=== PATIENT | male | born 1940 | race Caucasian/White ===

== ENCOUNTER 2020-04-15 08:12 | Inpatient (IN) | payer MEDICARE, OTHER ==
[~2020-04-15] VITALS: Ht 165.1 cm; Wt 120.2 kg
--- NOTE | 2020-04-15 08:12 | NUR ---
[id number] PT C/O HEADACHE. PT IS AAOX2, NOT IN RESPIRATORY DISTRESS, HOOKED TO MERCHANDISING TEAM LEAD, KEPT RESTED AND COMFORTABLE. WILL CONTINUE TO MONITOR.
--- NOTE | 2020-04-15 08:12 | NUR ---
Note bebeto in ED - 04/15/20 at 0932 by JOHNNY PT AIDE [facility]. PT C/O HEADACHE. PT IS AAOX3, NOT IN RESPIRATORY DISTRESS, HOOKED TO HAND FORMER, KEPT RESTED AND COMFORTABLE. WILL CONTINUE TO MONITOR.
--- NOTE | 2020-04-15 08:25 | NUR ---
PT SEEN AND EXAMINED BY .
--- NOTE | 2020-04-15 08:27 | NUR ---
IV LINE ESTABLISHED BLOOD DRAWN AND SENT TO LAB.
--- NOTE | 2020-04-15 08:36 | NUR ---
PT IS WHEELED TO CT SCAN VIA [facility].
[2020-04-15 08:38] LABS: BASOPHILS # (AUTO) 0.1 /CMM (0.0-0.2); EOSINOPHILS % (AUTO) 1.8 % (0.0-6.0); HEMATOCRIT 39 % (39-51); HEMOGLOBIN 11.7 g/dL (13.5-17.5); LYMPHOCYTES # (AUTO) 0.9 /CMM (0.8-4.8); LYMPHOCYTES % (AUTO) 9.3 % (20.0-44.0); MEAN CORPUSCULAR HGB CONC 30 g/dl (31.0-36.0); MEAN CORPUSCULAR VOLUME 96 fL (80-96); MONOCYTES # (AUTO) 0.8 /CMM (0.1-1.30); MONOCYTES % (AUTO) 8.1 % (2.0-12.0); NEUTROPHILS # (AUTO) 7.7 /CMM (1.8-8.9); NEUTROPHILS % (AUTO) 79.8 % (43.0-81.0); PLATELET COUNT (AUTO) 184 /CMM (150-450); RED BLOOD CELL COUNT(AUTO) 4.03 MIL/uL (4.5-6.0); WHITE BLOOD COUNT (AUTO) 9.6 K/uL (4.3-11.0)
[2020-04-15 08:50] LABS: CARBON DIOXIDE 18 mmol/L (21-32); CHLORIDE 97 mmol/L (98-107); GLUCOSE 138 mg/dL (74-106); SODIUM SERUM 139 mmol/L (136-145)
--- NOTE | 2020-04-15 08:57 | NUR ---
LAB CALLED, CALCIUM 5.9 BUN 141 CREATNIN 10.1
[2020-04-15 08:58] LABS: CALCIUM, SERUM 5.9 mg/dL (8.5-10.1); CREATININE 10.1 mg/dL (0.6-1.3); UREA NITROGEN, BLOOD 141 mg/dL (7-18)
[2020-04-15] MEDS ORDERED: ASPI-605 PO (08:58)
[2020-04-15] MEDS ORDERED: QUET50TA PO (08:58)
[2020-04-15] MEDS ORDERED: FURO-144 PO (08:58)
[2020-04-15] MEDS ORDERED: MIDO10TA PO (08:58)
[2020-04-15] MEDS ORDERED: MULT1TAB69 PO (08:58)
[2020-04-15] MEDS ORDERED: ATOR40TA PO (08:58)
[2020-04-15] MEDS ORDERED: LINA5TAB PO (08:58)
[2020-04-15] MEDS ORDERED: DOXE25CA3 PO (08:58)
--- NOTE | 2020-04-15 08:58 | NUR ---
CALLED PT 'S SON ASHISH NO ANSWER.
[2020-04-15 09:00] LABS: ALANINE AMINOTRANSFERASE < 6 U/L (12-78); ALBUMIN 3.2 g/dL (3.4-5.0); ALKALINE PHOSPHATASE 96 U/L (46-116); ASPARTATE AMINOTRANSFERASE 21 U/L (15-37); BILIRUBIN,DIRECT 0.3 mg/dL (0.0-0.2); BILIRUBIN,TOTAL 0.6 mg/dL (0.2-1.0); TOTAL PROTEIN, SERUM 6.7 g/dL (6.4-8.2)
--- NOTE | 2020-04-15 09:31 | NUR ---
CALLED DR. POSADAS [phone] [phone]
--- NOTE | 2020-04-15 09:33 | NUR ---
MOVE SHEET SUBMITTED AND CALLED FOR BED.
--- NOTE | 2020-04-15 09:39 | NUR ---
CALLED SON MANUEL HINOJOSA NO ANSWER.
--- NOTE | 2020-04-15 10:05 | NUR ---
CALLED DR. POSADAS [phone] X [phone] WILL BE PAGED PER [place]
--- NOTE | 2020-04-15 10:26 | NUR ---
COVID SWAB OBTAINED AND SENT TO LAB.
[2020-04-15] MEDS ORDERED: HYDROCODONE/APAP 5/325MG TABLET PO PRN (10:30)
[2020-04-15] MEDS ORDERED: DEXTROSE 50%-WATER 50 ML DISP.SYRIN IV PRN (10:30)
[2020-04-15] MEDS ORDERED: ZOLPIDEM TARTRATE 5 MG TABLET PO PRN (10:30)
[2020-04-15] MEDS ORDERED: ACETAMINOPHEN 325 MG TABLET PO PRN (10:30)
[2020-04-15] MEDS ORDERED: MAG HYDROX/AL HYDROX/SIMETH 30 ML UDC PO PRN (10:30)
[2020-04-15] MEDS ORDERED: Z GUARD REMEDY 2 OZ OINT TP PRN (10:30)
[2020-04-15] MEDS ORDERED: MAGNESIUM HYDROXIDE 30 ML UDC PO PRN (10:30)
[2020-04-15] MEDS ORDERED: ONDANSETRON HCL/PF 4 MG/2 ML VIAL IVP PRN (10:30)
[2020-04-15] MEDS ORDERED: ASPIRIN 81 MG TAB.CHEW ONE (10:56)
[2020-04-15] MEDS ORDERED: ASPIRIN 81 MG TAB.CHEW PO ONE (11:00)
--- NOTE | 2020-04-15 11:06 | NUR ---
REPORT GIVEN TO EDGAR GAUTHIER FOR MAGO.
[2020-04-15] MEDS ORDERED: ASPIRIN 81 MG TAB.CHEW PO SCH (11:30)
--- NOTE | 2020-04-15 12:00 | NUR ---
MS/RN ADMITTING NOTES Received patient in [facility], transferred to bed. Vital signs taken, patient A&O x 2, confused, Maltese speaking. Breathing even and non-labored on RA, no SOB noted. No cardiac distress noted. On tele monitor reading SR 85. IV access noted on R AC #18, patent and intact, and flushing well. R chest permacath noted. Sensation from all peripheral extremities noted. Fall precautions maintained. Will continue to monitor for any changes of condition.
[2020-04-15] MEDS: CALCIUM CARBONATE 500 MG TAB.CHEW PO SCH ×3 (12:30→21:31)
--- NOTE | 2020-04-15 12:50 | NUR ---
MS/RN NOTES OBTAINED HEMODIALYSIS CONSENT THROUGH SON (ASHISH) VIA TELEPHONE, SINCE PATIENT IS CONFUSED.
[2020-04-15] MEDS: MIDODRINE HCL (5MG) 5 MG TABLET PO SCH ×2 (13:14→17:47)
[2020-04-15] MEDS: BLOOD SUGAR DIAGNOSTIC 1 EACH STRIP VI SCH ×3 (13:21→22:13)
--- NOTE | 2020-04-15 17:45 | NUR ---
TELE/RN NOTES Asked Dr. Branham for an order of chem prophylaxis for DVT since pt's VTE score is 4, he states "dvt pumps only". Order carried out.
[2020-04-15] MEDS: *INSULIN REGULAR(HUMULIN R)HUM 100 UNIT/ML VIAL SQ PRN (17:56)
--- NOTE | 2020-04-15 18:00 | NUR ---
TELE/RN NOTES PATIENT VERY CONFUSED AND COMBATIVE, TRIES TO GET OUT OF BED, THROWS THE IV POLE AND DRAWERS AROUND, AND REPEATEDLY REMOVED TELE LEADS AND DEVICE. HELD TELE FOR NOW DUE TO BEHAVIOR. TRIED ALTERNATIVE MEASURES BEFORE RESTRAINTS SUCH REDIRECTION, BUT REMAINS TO BE COMBATIVE. NOTIFIED DR. GARRISON, ORDERED SOFT BILATERAL WRIST RESTRAINTS. WILL CONTINUE TO MONITOR BEHAVIOR, SKIN, AND CIRCULATION EVERY 15 MINUTES.
[2020-04-15] MEDS: LORAZEPAM INJ 2 MG/ML VIAL IV PRN (19:10)
--- NOTE | 2020-04-15 19:32 | NUR ---
TELE/RN NOTES Patient A&O x 2, remains confused and combative, yelling around. No complaints of pain/discomfort at this time. Breathing even and non-labored on RA, no SOB noted. No cardiac distress noted. IV access noted on R AC #18, patent and intact, and flushing well. R chest permacath noted. Pt had dialysis today, 1L out. Sensation from all peripheral extremities noted. Fall precautions maintained. Bilateral soft restraints in place, skin and sensation remains intact. Will endorse to night shift supervisor nurse.
--- NOTE | 2020-04-15 19:45 | NUR ---
FRUIT CULLER OPENING NOTES PATIENT AWAKE AND YELLING IN BED. A/OX2; CONFUSED; PRIMARY LANGUAGE VENEZUELAN. BILATERAL SOFT WRIST RESTRAINTS PRESENT FOR PATIENT SAFETY; SKIN CIRCULATION WNL. TELE MONITOR READING NSR, HEART RATE 98. ON RA; NO S/S OF ACUTE RESPIRATORY DISTRESS. PERMACATH PRESENT ON RIGHT UPPER CHEST; DRESSING DRY AND INTACT. IV PRESENT ON RIGHT AC, SIZE 18, INTACT & PATENT, HEP LOCKED. SAFETY MEASURES IN PLACE AND PATIENT'S NEEDS MET. BED LOCKED, ALARM ON, SIDE RAILS X2, CALL LIGHT WITHIN REACH. WILL CONTINUE TO MONITOR.
[2020-04-15 20:00] VITALS: BP 100/61
[2020-04-15 20:05] VITALS: BP 100/61
[2020-04-15] MEDS: ATORVASTATIN 40 MG TABLET PO SCH (21:31)
[2020-04-15] MEDS: QUETIAPINE FUMARATE 25 MG TABLET PO SCH (21:32)
[2020-04-15] MEDS: DOXEPIN HCL (25 MG) 25 MG CAPSULE PO SCH (21:32)
[2020-04-16] VITALS (24 sets, daily range): BP systolic 57–138; BP diastolic 30–88
--- NOTE | 2020-04-16 01:26 | NUR ---
MEDICAL DEVICE NOTES PATIENT'S BP: 73/60 HR: 94; NOTIFIED ON MARCO RAM MD. RECEIVED ORDERS FOR 500 ML NS BOLUS ONE TIME. ORDERS CARRIED OUT.
--- NOTE | 2020-04-16 01:40 | NUR ---
TALENT MANAGER NOTES PATIENT'S BP: 95/64 HR: 90. WILL CONTINUE TO MONITOR.
--- NOTE | 2020-04-16 02:16 | NUR ---
VENDING TECHNICIAN NOTES PATIENT'S BP: 120/85 HR: 94
[2020-04-16] MEDS ORDERED: IV NS 0.9% 500 ML IV ONE (02:30)
[2020-04-16] MEDS: INSULIN REGULAR, HUMAN 100 UNIT/ML 3 ML VIAL SQ PRN (06:26)
[2020-04-16] MEDS: LORAZEPAM INJ 2 MG/ML VIAL IV PRN (06:42)
--- NOTE | 2020-04-16 06:42 | NUR ---
SOFTWARE RELEASE ENGINEER NOTES PATIENT IS SCREAMING, TRYING TO REMOVE BILATERAL SOFT WRIST RESTRAINTS, AND TRYING TO GET OUT OF BED. PRN ATIVAN 0.5MG IV GIVEN TO PATIENT. VITAL SIGNS - BPO Addendum: 04/16/20 at 0658 by PEGGY RENE RN VITAL SIGNS - BP: 151/59, HR: 92. SAFETY MEASURES IN PLACE. WILL CONTINUE TO MONITOR.
[2020-04-16] MEDS: BLOOD SUGAR DIAGNOSTIC 1 EACH STRIP VI SCH ×4 (06:47→23:11)
--- NOTE | 2020-04-16 07:32 | NUR ---
RN NOTES RECEIVED PATIENT IN BED RESTING COMFORTABLY IN MODERATE HIGH BACK REST. A/O X1, LAO SPEAKING. CONFUSED; ON OXYGEN 2LPM VIA NC, NO SIGNS OF DISTRESS NOTED AT THIS TIME, NOTED WITH BILATERAL SOFT WRIST RESTRAINTS PRESENT FOR PATIENT SAFETY; SKIN CIRCULATION WNL. TELE MONITOR READING NSR, HEART RATE 90'S. NOTED WITH PERMACATH PRESENT ON RIGHT UPPER CHEST; DRESSING DRY AND INTACT. IV PRESENT ON RIGHT HAND #20, INTACT & PATENT, HEP LOCKED. SAFETY MEASURES IN PLACE. BED LOCKED, ALARM ON, SIDE RAILS X2, CALL LIGHT WITHIN REACH. WILL CONTINUE TO MONITOR.
--- NOTE | 2020-04-16 07:41 | NUR ---
WEB PRESS ROLL TENDER CLOSING NOTES PATIENT SLEEPING IN BED, EASY TO AWAKEN. A/OX2; CONFUSED. BILATERAL SOFT WRIST RESTRAINTS PRESENT FOR PATIENT SAFETY; SKIN CIRCULATION WNL. TELE MONITOR READING NSR, HEART RATE 89. ON 2L NC. NO S/S OF ACUTE RESPIRATORY DISTRESS; BREATHING IS EVEN AND UNLABORED. PERMACATH PRESENT ON RIGHT UPPER CHEST; DRESSING DRY AND INTACT. IV PRESENT ON RIGHT HAND, SIZE 20, INTACT & PATENT, HEP LOCKED. SAFETY MEASURES IN PLACE AND PATIENT'S NEEDS MET. BED LOCKED, ALARM ON, SIDE RAILS X2, CALL LIGHT WITHIN REACH. ENDORSED TO DAY SHIFT RN PLAN OF CARE.
[2020-04-16] MEDS: ASPIRIN EC 81 MG TABLET.DR PO SCH ×2 (08:16→09:00)
[2020-04-16] MEDS: MULTIVITAMINS,THERAGRAN 1 UDTAB TABLET PO SCH ×2 (08:16→09:00)
[2020-04-16] MEDS: MIDODRINE HCL (5MG) 5 MG TABLET PO SCH ×4 (08:16→17:00)
[2020-04-16] MEDS: CALCIUM CARBONATE 500 MG TAB.CHEW PO SCH ×3 (08:17→22:00)
[2020-04-16] MEDS ORDERED: IV NS 0.9% 1,000 ML IV SCH (08:52)
--- NOTE | 2020-04-16 08:59 | NUR ---
WOUND CARE CONSULT: PT UNSTABLE AT THIS TIME. NO WOUND ASSESSMENT DUE TO PT CONDITION. REVIEWED CHART AND PHOTO DOCUMENTATION WHICH SHOWS SCROTAL/PERINEAL REDNESS AND RASH. RECOMMENDATIONS MADE FOR SKIN CARE AND PROTECTION. DISCUSSED WITH NURSING STAFF. WILL SEE PRN. HAND IN AGREEMENT WITH PLAN OF CARE. CURRENT [place] SCORE IS 15.
--- NOTE | 2020-04-16 09:00 | NUR ---
RN NOTES PATIENT BP 76/46, CHECKED MANUALLY TWICE, MD MADE AWARE. RECEIVED A CALL FROM DR. BEACH TO TRANSFER PATIENT TO ICU, IV FLUIDS OF NS 1L STARTED TO RUN FOR 2 HRS. WILL CONTINUE TO MONITOR.
[2020-04-16] MEDS: CLOTRIMAZOLE 1% 15 GM TUBE TP SCH ×2 (09:38→17:00)
--- NOTE | 2020-04-16 10:30 | NUR ---
RN NOTES PATIENT WAS TRANSFERRED TO ICU ROOM 262, BEDSIDE REPORT GIVEN TO ABRAHAN GARCIA. ALL BELONGINGS SENT WITH PATIENT.
--- NOTE | 2020-04-16 14:11 | NUR ---
patient transferred back to . Ok per. Dr. Branham. Patient agitated, BP stable, see vitasigns. 98/55 L leg. Refused 1300 dose of midodraine. x1 BM. restraints changed to mittens to prevent disruption of medical care.
--- NOTE | 2020-04-16 14:15 | NUR ---
RN NOTES RECEIVED PATIENT VIA HOSPITAL BED FROM ICU, BP OF 71/48 ON ARMS, 90/50 ON LEGS, PER ICU NURSE, PATIENT IS COMBATIVE AND REFUSED MIDODRINE. MD MADE AWARE. WILL CONTINUE TO MONITOR.
--- NOTE | 2020-04-16 14:55 | NUR ---
RN NOTES DIALYSIS NURSE ON UNIT, PATIENT WILL BE DIALYZE ON BED SIDE, PATIENT IS CALM AND ASLEEP, NO SIGNS OF DISTRESS NOTED AT THIS TIME. WILL CONTINUE TO MONITOR.
[2020-04-16 15:52] LABS: BASOPHILS # (AUTO) 0.1 /CMM (0.0-0.2); EOSINOPHILS % (AUTO) 1.6 % (0.0-6.0); HEMATOCRIT 29 % (39-51); HEMOGLOBIN 8.9 g/dL (13.5-17.5); LYMPHOCYTES # (AUTO) 0.9 /CMM (0.8-4.8); MEAN CORPUSCULAR HGB CONC 31 g/dl (31.0-36.0); MEAN CORPUSCULAR VOLUME 95 fL (80-96); MONOCYTES # (AUTO) 0.6 /CMM (0.1-1.30); MONOCYTES % (AUTO) 5.8 % (2.0-12.0); NEUTROPHILS # (AUTO) 8.2 /CMM (1.8-8.9); NEUTROPHILS % (AUTO) 82.6 % (43.0-81.0); PLATELET COUNT (AUTO) 188 /CMM (150-450); RED BLOOD CELL COUNT(AUTO) 3.06 MIL/uL (4.5-6.0); WHITE BLOOD COUNT (AUTO) 9.9 K/uL (4.3-11.0)
[2020-04-16 16:32] LABS: ALANINE AMINOTRANSFERASE 8 U/L (12-78); ALBUMIN 3.1 g/dL (3.4-5.0); ALKALINE PHOSPHATASE 107 U/L (46-116); ASPARTATE AMINOTRANSFERASE 13 U/L (15-37); BILIRUBIN,TOTAL 0.6 mg/dL (0.2-1.0); CALCIUM, SERUM 8.2 mg/dL (8.5-10.1); CARBON DIOXIDE 23 mmol/L (21-32); CHLORIDE 101 mmol/L (98-107); GLUCOSE 96 mg/dL (74-106); MAGNESIUM 2.3 mg/dL (1.8-2.4); PHOSPHORUS 5.9 mg/dL (2.5-4.9); POTASSIUM 3.8 mmol/L (3.5-5.1); SODIUM SERUM 141 mmol/L (136-145); TOTAL PROTEIN, SERUM 6.4 g/dL (6.4-8.2)
--- NOTE | 2020-04-16 17:15 | NUR ---
RN NOTES DIALYSIS DONE, NO OUTPUT, PATIENT IS CONFUSED AND COMBATIVE, BP OF 90/60. WILL CONTINUE TO MONITOR.
[2020-04-16 17:24] LABS: UREA NITROGEN, BLOOD 85 mg/dL (7-18)
[2020-04-16 17:25] LABS: CREATININE 8.1 mg/dL (0.6-1.3)
--- NOTE | 2020-04-16 17:41 | NUR ---
RN NOTES PATIENT IS AGITATED AND COMBATIVE, REFUSED BS CHECKED AND MEDICATION. EXPLAINED RISKS AND BENEFITS BUT PATIENT STILL REFUSED. WILL CONTINUE TO MONITOR.
--- NOTE | 2020-04-16 17:50 | NUR ---
RN NOTES PATIENT REFUSED TELE MONITORING BOX, COMBATIVE AND CONFUSED, WILL CONTINUE TO MONITOR. MD MADE AWARE. WILL CONTINUE TO MONITOR.
--- NOTE | 2020-04-16 18:39 | NUR ---
RN NOTES PATIENT IN BED AGGRESIVE/COMBATIVE WHEN TOUCH. A/O X1, MONGOLIAN SPEAKING. CONFUSED; ON OXYGEN 2LPM VIA NC, WITH BILATERAL SOFT WRIST RESTRAINTS PRESENT FOR PATIENT SAFETY; SKIN CIRCULATION WNL. REFUSED TELEMONITOR BOX, S/P HD WITH NO OUTPUT. NOTED WITH PERMACATH PRESENT ON RIGHT UPPER CHEST; DRESSING DRY AND INTACT. IV PRESENT ON RIGHT HAND #20, INTACT & PATENT, HEP LOCKED. SAFETY MEASURES IN PLACE. BED LOCKED, ALARM ON, SIDE RAILS X2, CALL LIGHT WITHIN REACH. WILL ENDORSE TO ADMINISTRATIVE VOLUNTEER NURSE FOR MAGO.
--- NOTE | 2020-04-16 19:16 | NUR ---
PATIENT AGGRESSIVE AND UNCOOPERATIVE. CANNOT PERFORM DUPLEX VENOUS EXAM ON UPPER EXT RIGHT. WILL TRY KENDRA.
--- NOTE | 2020-04-16 19:31 | NUR ---
WOOD SCALER OPENING NOTES PATIENT AWAKE AND YELLING IN BED. A/OX2; CONFUSED. BILATERAL SOFT WRIST RESTRAINTS PRESENT FOR PATIENT SAFETY; SKIN CIRCULATION WNL. PATIENT REFUSING TELE MONITOR AT THIS TIME. ON RA; NO S/S OF ACUTE RESPIRATORY DISTRESS. PERMACATH PRESENT ON RIGHT UPPER CHEST; DRESSING DRY AND INTACT. IV PRESENT ON RIGHT HAND, SIZE 20, INTACT & PATENT, HEP LOCKED. SAFETY MEASURES IN PLACE AND PATIENT'S NEEDS MET. BED LOCKED, ALARM ON, SIDE RAILS X2, CALL LIGHT WITHIN REACH. WILL CONTINUE TO MONITOR.
--- NOTE | 2020-04-16 20:27 | NUR ---
GRADUATE ADVISOR NOTES TELE MONITOR READING NSR, HEART RATE 90. PATIENT SLEEPING IN BED, EASY TO AWAKEN. SOFT BILATERAL WRIST RESTRAINTS REMAIN IN PLACE FOR PATIENT SAFETY; SKIN CIRCULATION WNL. WILL CONTINUE TO MONITOR.
[2020-04-16] MEDS: DOXEPIN HCL (25 MG) 25 MG CAPSULE PO SCH (22:00)
[2020-04-16] MEDS: ATORVASTATIN 40 MG TABLET PO SCH (22:00)
[2020-04-16] MEDS: QUETIAPINE FUMARATE 25 MG TABLET PO SCH (22:00)
[2020-04-17] VITALS: BP 95/55
[2020-04-17 04:00] VITALS: BP 102/71
[2020-04-17] MEDS: BLOOD SUGAR DIAGNOSTIC 1 EACH STRIP VI SCH ×4 (06:49→22:45)
--- NOTE | 2020-04-17 07:55 | NUR ---
REFRIGERATION UNIT REPAIRER CLOSING NOTES PATIENT SLEEPING IN BED, EASY TO AWAKEN. A/OX1; CONFUSED. BILATERAL SOFT WRIST RESTRAINTS PRESENT FOR PATIENT SAFETY; SKIN CIRCULATION WNL. TELE MONITOR READING NSR, HEART RATE 90. ON 2L NC. NO S/S OF ACUTE RESPIRATORY DISTRESS; BREATHING IS EVEN AND UNLABORED. PERMACATH PRESENT ON RIGHT UPPER CHEST; DRESSING DRY AND INTACT. IV PRESENT ON RIGHT HAND, SIZE 20, INTACT & PATENT, HEP LOCKED. SAFETY MEASURES IN PLACE AND PATIENT'S NEEDS MET. BED LOCKED, ALARM ON, SIDE RAILS X2, CALL LIGHT WITHIN REACH. ENDORSED TO DAY SHIFT RN PLAN OF CARE
[2020-04-17 08:00] VITALS: BP 146/96
--- NOTE | 2020-04-17 08:00 | NUR ---
MESSAGE AND DELIVERY SERVICE PRICER AM NOTES PATIENT LYING IN BED A/OX1; CONFUSED. WITH RESTLESS EPISODES WANTING TO GO HOME AND LOOK FOR HIS .REORIENTATION GIVEN BUT INEFFECTIVE. CALLED PT'S ,ANDREA AND SON, ASHISH TO RELAX THE PT BUT PT CONTINUES TO BE AGITATED. WILL MONITOR. ON BILATERAL SOFT WRIST RESTRAINTS PRESENT FOR PATIENT SAFETY; SKIN CIRCULATION WNL. TELE MONITOR READING NSR, HEART RATE 90. ON 2L NC. NO S/S OF ACUTE RESPIRATORY DISTRESS; BREATHING IS EVEN AND UNLABORED. PERMACATH PRESENT ON RIGHT UPPER CHEST; DRESSING DRY AND INTACT. IV PRESENT ON RIGHT HAND, SIZE 20, INTACT & PATENT, HEP LOCKED. SAFETY MEASURES IN PLACE.BED LOCKED, ALARM ON, SIDE RAILS X2, CALL LIGHT WITHIN REACH.
[2020-04-17] MEDS: LORAZEPAM INJ 2 MG/ML VIAL IV PRN (09:01)
[2020-04-17] MEDS: MIDODRINE HCL (5MG) 5 MG TABLET PO SCH ×3 (09:01→17:16)
[2020-04-17] MEDS: ASPIRIN EC 81 MG TABLET.DR PO SCH (09:01)
[2020-04-17] MEDS: CALCIUM CARBONATE 500 MG TAB.CHEW PO SCH ×2 (09:01→22:15)
[2020-04-17] MEDS: MULTIVITAMINS,THERAGRAN 1 UDTAB TABLET PO SCH (09:01)
[2020-04-17] MEDS: CLOTRIMAZOLE 1% 15 GM TUBE TP SCH ×2 (10:43→17:17)
[2020-04-17 16:00] VITALS: BP 139/96
[2020-04-17] MEDS ORDERED: NEPRO VAN 237 ML CAN PO PRN (16:00)
--- NOTE | 2020-04-17 16:39 | NUR ---
NOTIFIED DR GARRISON OF PT'S DOPPLER OF RUE RESULT WITH ORDER FOR ELIQUIS AND CARRIED OUT.
[2020-04-17] MEDS: DIVALPROEX SODIUM 125 MG CAP.SPRINK PO SCH (17:16)
[2020-04-17] MEDS ORDERED: APIXABAN 2.5 MG TABLET PO SCH (17:45)
--- NOTE | 2020-04-17 18:00 | NUR ---
PT COMFORTABLY SLEEPING AND RESTING IN BED WITH NO S/S OF PAIN OR DISTRESS.PT REFUSED LUNCH AND DINNER INSPITE OF EXPLAINING THE RISKS AND BENEFITS AND IMPORTANCE OF NOURISHMENT BUT PT STILL INSISTS TO REFUSE.REFUSED JUICE/WATER/SNACKS. DIETITIANMARIA TERESA IN THE CASE. TURNED EVERY TWO HRS.STILL WITH PERIOD OF AGGRESSIVENESS AND SCREAMING TO THE STAFF DURING THE SHIFT.SEEN BY DR CASILLAS (PSYCH) WITH ORDERS FOR DEPAKOTE AND CARRIED OUT.WILL MONITOR.
[2020-04-17] MEDS: APIXABAN 5 MG TABLET PO SCH (18:23)
--- NOTE | 2020-04-17 19:30 | NUR ---
MS/RN OPENING NOTES RECEIVED PATIENT RESTING IN BED. PATIENT IS ALERT AND ORIENTED X 1. NO SIGNS OF SOB OR RESPIRATORY DISTRESSED NOTED. PATIENT IS ON 2L OF O2 VIA N/C TOLERATING WELL. PATIENT HAS RIGHT HAND #[address] AND RIGHT CHEST PERMA CATH IN PLACE. NO SIGNS OF DISTRESSED NOTED. PATIENT HAS BILATERAL SOFT WRIST RESTRAINTS, EXTREMITY CIRCULATION GOOD. SAFETY MEASURES ARE IN PLACE BED IS LOCKED AND PLACED IN THE LOWEST POSITION CALL LIGHT WITH IN REACH SIDE RAILS UP X 3. WILL CONTINUE TO MONITOR DURING SHIFT.
[2020-04-17 20:00] VITALS: BP 99/56
[2020-04-17] MEDS: ATORVASTATIN 40 MG TABLET PO SCH (22:14)
[2020-04-17] MEDS: QUETIAPINE FUMARATE 25 MG TABLET PO SCH (22:14)
[2020-04-18] MEDS: BLOOD SUGAR DIAGNOSTIC 1 EACH STRIP VI SCH ×4 (06:21→21:37)
--- NOTE | 2020-04-18 06:30 | NUR ---
MS/RN CLOSING NOTES PATIENT SLEEPING IN BED. PATIENT IS ALERT AND ORIENTED X 1. NO SIGNS OF SOB OR RESPIRATORY DISTRESSED NOTED. PATIENT IS ON 2L OF O2 VIA N/C TOLERATING WELL. PATIENT HAS RIGHT HAND #[address] AND RIGHT CHEST PERMA CATH IN PLACE. NO SIGNS OF DISTRESSED NOTED. PATIENT HAS BILATERAL SOFT WRIST RESTRAINTS, EXTREMITY CIRCULATION GOOD. ALL OF THE PATIENTS NEEDS HAVE BEEN MET DURING SHIFT. SAFETY MEASURES ARE IN PLACE BED IS LOCKED AND PLACED IN THE LOWEST POSITION CALL LIGHT WITH IN REACH SIDE RAILS UP X 3. WILL ENDORSE CARE TO DAY SHIFT.
[2020-04-18 08:00] VITALS: BP 105/54
--- NOTE | 2020-04-18 08:00 | NUR ---
MS RN NOTES PATIENT IN BED RESTING NO SOB OR ACUTE DISTRESS NOTED. PATIENT ON BILATERAL SOFT WRIST RESTRAINTS. ALERT, ORIENTED X1. CONFUSED. SAFETY MEASURES IN PLACE. WILL CONTINUE TO MONITOR.
--- NOTE | 2020-04-18 08:41 | NUR ---
NURSE WILL CLARIFY EXAM WITH NEUROLOGIST DF @ [id number]
[2020-04-18] MEDS ORDERED: APIXABAN 2.5 MG TABLET PO SCH (09:00)
[2020-04-18] MEDS: MIDODRINE HCL (5MG) 5 MG TABLET PO SCH ×3 (09:18→17:13)
[2020-04-18] MEDS: APIXABAN 5 MG TABLET PO SCH ×2 (09:19→17:14)
[2020-04-18] MEDS: CLOTRIMAZOLE 1% 15 GM TUBE TP SCH ×2 (09:20→17:21)
[2020-04-18] MEDS: DIVALPROEX SODIUM 125 MG CAP.SPRINK PO SCH ×3 (09:20→17:14)
[2020-04-18] MEDS: ASPIRIN EC 81 MG TABLET.DR PO SCH (09:20)
[2020-04-18] MEDS: MULTIVITAMINS,THERAGRAN 1 UDTAB TABLET PO SCH (09:20)
[2020-04-18] MEDS: CALCIUM CARBONATE 500 MG TAB.CHEW PO SCH ×2 (09:21→21:29)
[2020-04-18] MEDS ORDERED: EPOETIN ALFA (10,000 UNIT) 10,000 UNIT/ML VIAL IV ONE (13:00)
[2020-04-18 16:00] VITALS: BP 132/52
--- NOTE | 2020-04-18 16:20 | NUR ---
MS RN NOTES PATIENT HAD MIDLINE INSERTED, TOLERATED WELL, WILL CONTINUE TO MONITOR.
--- NOTE | 2020-04-18 18:25 | NUR ---
MS RN NOTES PATIENT IN BED RESTING NO SOB OR ACUTE DISTRESS NOTED. PATIENT ALERT, ORIENTED X3. ALL DUE MEDICATIONS ADMINISTERED. ALL NEEDS MET. PATIENT TOLERATED PT WELL. PAIN WAS MANAGED. WILL ENDORSE CARE TO PM SHIFT.
--- NOTE | 2020-04-18 18:28 | NUR ---
MS RN NOTES PATIENT STARTED HD.
[2020-04-18 19:12] LABS: BASOPHILS # (AUTO) 0.1 /CMM (0.0-0.2)
[2020-04-18 19:16] LABS: HEMATOCRIT 38 % (39-51); LYMPHOCYTES # (AUTO) 0.6 /CMM (0.8-4.8); MONOCYTES # (AUTO) 0.8 /CMM (0.1-1.30); WHITE BLOOD COUNT (AUTO) 10.1 K/uL (4.3-11.0)
[2020-04-18 19:18] LABS: BASOPHILS % (AUTO) 1.2 % (0.0-2.0); EOSINOPHILS % (AUTO) 0.7 % (0.0-6.0); HEMOGLOBIN 11.3 g/dL (13.5-17.5); LYMPHOCYTES % (AUTO) 5.7 % (20.0-44.0); MEAN CORPUSCULAR HGB CONC 30 g/dl (31.0-36.0); MEAN CORPUSCULAR VOLUME 96 fL (80-96); MONOCYTES % (AUTO) 7.5 % (2.0-12.0); NEUTROPHILS # (AUTO) 8.6 /CMM (1.8-8.9); NEUTROPHILS % (AUTO) 84.9 % (43.0-81.0); PLATELET COUNT (AUTO) 144 /CMM (150-450); RED BLOOD CELL COUNT(AUTO) 3.95 MIL/uL (4.5-6.0)
[2020-04-18] MEDS ORDERED: ALBUMIN 25% 25 GM in PREMIX 1 EA IV ONE (19:30)
--- NOTE | 2020-04-18 19:30 | NUR ---
MS/RN RECEIVED PATIENT IN BED. PATIENT IS ALERT AND ORIENTED X 1, BARBADIAN SPEAKING. PATIENT IS CURRENTLY RECEIVED HD. PATIENT IS ON 2L OF O2 VIA N/C. NO SIGNS OF RESPIRATORY DISTRESS OR SOB NOTED. PATIENT HAS MIDLINE ON LEFT UPPER ARM. NO DISTRESS NOTED. SAFETY MEASURES ARE IN PLACE, BED IS LOCKED AND IN THE LOW POSITION. CALL LIGHT IS WITHIN REACH WITHIN. WILL CONTINUE TO MONITOR PATIENT THROUGH OUT SHIFT.
[2020-04-18 19:48] LABS: CALCIUM, SERUM 7.2 mg/dL (8.5-10.1); CARBON DIOXIDE 23 mmol/L (21-32); CHLORIDE 101 mmol/L (98-107); GLUCOSE 120 mg/dL (74-106); POTASSIUM 4.6 mmol/L (3.5-5.1); SODIUM SERUM 141 mmol/L (136-145)
[2020-04-18 19:50] LABS: CREATININE 9.6 mg/dL (0.6-1.3); UREA NITROGEN, BLOOD 100 mg/dL (7-18)
--- NOTE | 2020-04-18 19:55 | NUR ---
MS/RN NOTES CALL FROM LAB, CRITICAL LAB VALUES: BUN 100, CRE 9.6. DR. LARA NOTIFIED. PATIENT IS CURRENTLY RECEIVING HD. PATIENT IN NO DISTRESS. WILL CONTINUE TO MONITOR.
[2020-04-18 20:00] VITALS: BP 97/40
[2020-04-18 20:26] LABS: EOSINOPHILS % (MANUAL) 1 % (0-4); LYMPHOCYTES % (MANUAL) 3 % (16-48); MONOCYTES % (MANUAL) 2 % (0-11.0); NEUTROPHILS % (MANUAL) 94 (42-76)
--- NOTE | 2020-04-18 21:20 | NUR ---
MS/RN NOTES HD IS COMPLETED. 1.3L OUT. PATIENTS V/S ARE STABLE, BP 137/44, HR 106, TEMP 98.1 RR 18. PATIENT IS NO SIGNS OF DISTRESS. WILL CONTINUE TO MONITOR.
[2020-04-18] MEDS: QUETIAPINE FUMARATE 25 MG TABLET PO SCH (21:29)
[2020-04-18] MEDS: ATORVASTATIN 40 MG TABLET PO SCH (21:29)
[2020-04-19] MEDS: LORAZEPAM INJ 2 MG/ML VIAL IV PRN (04:05)
--- NOTE | 2020-04-19 04:45 | NUR ---
MS/RN NOTES PATIENT WAS GETTING AGITATED AND RESTLESS. ATIVAN 0.5 MG IV WAS GIVEN. PATIENT V/S ARE STABLE. WILL CONTINUE TO MONITOR.
--- NOTE | 2020-04-19 06:30 | NUR ---
MS/RN NOTES PATIENT BS 134. INSULIN HELD, PATIENT IS REFUSING TO EAT SNACKS AND MEALS. HISTORY OF LOW BS. PATIENT IN NO DISTRESS.
--- NOTE | 2020-04-19 06:50 | NUR ---
MS/RN CLOSING NOTES PATIENT IN BED SLEEPING EASY TO AROUSE. PATIENT IS ALERT AND ORIENTED X 1, ROMANSH SPEAKING. PATIENT IS ON 2L OF O2 VIA N/C TOLERATING WELL. NO SIGNS OF RESPIRATORY DISTRESS OR SOB NOTED. PATIENT HAS MIDLINE ON LEFT UPPER ARM INTACT FLUSHING WELL. NO DISTRESS NOTED. PATIENT HAS SOFT WRIST RESTRAINTS BILATERAL, WITH GOOD CIRCULATION. ALL PATIENTS NEEDS HAVE BEEN MET DURING SHIFT. SAFETY MEASURES ARE IN PLACE, BED IS LOCKED AND IN THE LOW POSITION. CALL LIGHT IS WITHIN REACH WITHIN. WILL ENDORSE CARE TO DAY SHIFT.
[2020-04-19 07:03] LABS: BASOPHILS # (AUTO) 0.1 /CMM (0.0-0.2); BASOPHILS % (AUTO) 1.4 % (0.0-2.0); EOSINOPHILS % (AUTO) 1.1 % (0.0-6.0); HEMATOCRIT 37 % (39-51); LYMPHOCYTES # (AUTO) 0.4 /CMM (0.8-4.8); LYMPHOCYTES % (AUTO) 4.2 % (20.0-44.0); MEAN CORPUSCULAR HGB CONC 30 g/dl (31.0-36.0); MEAN CORPUSCULAR VOLUME 97 fL (80-96); MONOCYTES # (AUTO) 0.7 /CMM (0.1-1.30); MONOCYTES % (AUTO) 6.6 % (2.0-12.0); NEUTROPHILS # (AUTO) 8.6 /CMM (1.8-8.9); NEUTROPHILS % (AUTO) 86.7 % (43.0-81.0); PLATELET COUNT (AUTO) 124 /CMM (150-450); RED BLOOD CELL COUNT(AUTO) 3.82 MIL/uL (4.5-6.0); WHITE BLOOD COUNT (AUTO) 9.9 K/uL (4.3-11.0)
--- NOTE | 2020-04-19 07:25 | NUR ---
RN NOTES RECEIVED PATIENT IN BED RESTING COMFORTABLY IN MODERATE HIGH BACK REST. A/O X1, TURKMEN SPEAKING. PATIENT IS ON 2L OF O2 VIA N/C TOLERATING WELL. NO SIGNS OF DISTRESS NOTED AT THIS TIME. PATIENT HAS MIDLINE ON LEFT UPPER ARM INTACT FLUSHING WELL. PATIENT HAS SOFT WRIST RESTRAINTS BILATERAL, WITH GOOD CIRCULATION. SAFETY MEASURES ARE IN PLACE, BED IS LOCKED AND IN THE LOW POSITION. CALL LIGHT IS WITHIN REACH WITHIN. WILL CONTINUE TO MONITOR.
[2020-04-19] MEDS: BLOOD SUGAR DIAGNOSTIC 1 EACH STRIP VI SCH ×4 (07:27→22:00)
[2020-04-19 07:31] LABS: ALBUMIN 3.4 g/dL (3.4-5.0); ALKALINE PHOSPHATASE 120 U/L (46-116); ASPARTATE AMINOTRANSFERASE 17 U/L (15-37); BILIRUBIN,TOTAL 0.6 mg/dL (0.2-1.0); CALCIUM, SERUM 7.1 mg/dL (8.5-10.1); CARBON DIOXIDE 25 mmol/L (21-32); CHLORIDE 101 mmol/L (98-107); GLUCOSE 136 mg/dL (74-106); MAGNESIUM 2.4 mg/dL (1.8-2.4); PHOSPHORUS 6.5 mg/dL (2.5-4.9); POTASSIUM 4.4 mmol/L (3.5-5.1); SODIUM SERUM 140 mmol/L (136-145); UREA NITROGEN, BLOOD 61 mg/dL (7-18)
[2020-04-19 07:39] LABS: ALANINE AMINOTRANSFERASE 6 U/L (12-78)
[2020-04-19 08:00] VITALS: BP 115/66
[2020-04-19] MEDS: DIVALPROEX SODIUM 125 MG CAP.SPRINK PO SCH ×3 (08:27→17:00)
[2020-04-19] MEDS: MIDODRINE HCL (5MG) 5 MG TABLET PO SCH ×3 (08:27→17:00)
[2020-04-19] MEDS: CALCIUM CARBONATE 500 MG TAB.CHEW PO SCH ×3 (08:27→17:00)
[2020-04-19] MEDS: MULTIVITAMINS,THERAGRAN 1 UDTAB TABLET PO SCH (08:27)
[2020-04-19] MEDS: ASPIRIN EC 81 MG TABLET.DR PO SCH (08:27)
[2020-04-19] MEDS: APIXABAN 5 MG TABLET PO SCH ×2 (08:28→17:00)
[2020-04-19] MEDS: CLOTRIMAZOLE 1% 15 GM TUBE TP SCH ×2 (08:59→17:00)
[2020-04-19 16:00] VITALS: BP 120/46
--- NOTE | 2020-04-19 16:12 | NUR ---
MS/RN Nurse change Patient received from [place].
[2020-04-19 17:00] VITALS: BP 120/46
--- NOTE | 2020-04-19 18:10 | NUR ---
MS/RN End note Patient remains in stable condition. Latest blood sugar 116, no insulin coverage needed. All medication administered as ordered, will endorse to film processing shift supervisor.
--- NOTE | 2020-04-19 19:45 | NUR ---
RECEIVED PATIENT IN BED,AWAKE. CONFUSED. WITH BILATERAL SOFT WRIST RESTRAINTS. SKIN AND CIRCULATIONS CHECKED, WNL. BED ALARM ON. BED IN LOWEST AND LOCKED POSITION. HAD BM, SMALL AMOUNT, BROWNISH COLOR,SOFT. WITH RIGHT ARM EDEMA AND REDNESS.
[2020-04-19 20:00] VITALS: BP 103/46
--- NOTE | 2020-04-19 20:03 | NUR ---
WITH O2 AT 3L/MIN ON.
[2020-04-19] MEDS: ATORVASTATIN 40 MG TABLET PO SCH (21:52)
[2020-04-19] MEDS: QUETIAPINE FUMARATE 25 MG TABLET PO SCH (21:53)
--- NOTE | 2020-04-19 22:44 | NUR ---
BED ALARM ON. HOB ELEVATED AT 30 DEGREES. PATIENT HAD COUGH WITH YELLOWISH PHLEGM, PATIENT ABLE TO EXPECTORATE IT. WITH O2 AT 3L/MIN. SIDERAILS UP.
[2020-04-20] MEDS: LORAZEPAM INJ 2 MG/ML VIAL IV PRN ×2 (04:06→16:32)
--- NOTE | 2020-04-20 05:49 | NUR ---
MS RN CLOSING NOTES: PATIENT IN BED ASLEEP, AROUSABLE. CONFUSED. HOB ELEVATED AT ALL TIMES. WITH BILATERAL WRISTS RESTRAINTS, NO SKIN BREAKDOWN, GOOD CIRCULATION, GOOD FINGERNAILS COLOR. BED ALARM ON. BED IN LOWEST AND LOCKED POSITION. NO SOB NOTED. NOT IN PAIN.
[2020-04-20] MEDS: BLOOD SUGAR DIAGNOSTIC 1 EACH STRIP VI SCH ×4 (06:26→21:46)
--- NOTE | 2020-04-20 06:26 | NUR ---
BLOOD SUGAR [id number] NO INSULIN GIVEN.
--- NOTE | 2020-04-20 07:42 | NUR ---
RN NOTES RECEIVED PATIENT IN BED RESTING COMFORTABLY IN MODERATE HIGH BACK REST. A/O X1, SALVADOREAN SPEAKING. PATIENT IS ON 2L OF O2 VIA N/C TOLERATING WELL. NO SIGNS OF DISTRESS NOTED AT THIS TIME. PATIENT HAS MIDLINE ON LEFT UPPER ARM INTACT FLUSHING WELL. PATIENT HAS SOFT WRIST RESTRAINTS BILATERAL, WITH GOOD CIRCULATION. SAFETY MEASURES ARE IN PLACE, BED IS LOCKED AND IN THE LOW POSITION. CALL LIGHT IS WITHIN REACH WITHIN. WILL CONTINUE TO MONITOR.
[2020-04-20 08:00] VITALS: BP 107/57
[2020-04-20] MEDS: CALCIUM CARBONATE 500 MG TAB.CHEW PO SCH ×3 (08:33→16:25)
[2020-04-20] MEDS: ASPIRIN EC 81 MG TABLET.DR PO SCH (08:33)
[2020-04-20] MEDS: MULTIVITAMINS,THERAGRAN 1 UDTAB TABLET PO SCH (08:33)
[2020-04-20] MEDS: DIVALPROEX SODIUM 125 MG CAP.SPRINK PO SCH ×3 (08:33→16:24)
[2020-04-20] MEDS: APIXABAN 5 MG TABLET PO SCH ×2 (08:34→16:27)
[2020-04-20] MEDS: MIDODRINE HCL (5MG) 5 MG TABLET PO SCH ×3 (08:35→16:25)
[2020-04-20] MEDS: CLOTRIMAZOLE 1% 15 GM TUBE TP SCH ×2 (09:34→16:40)
[2020-04-20] MEDS: INSULIN REGULAR, HUMAN 100 UNIT/ML 3 ML VIAL SQ PRN (12:00)
[2020-04-20 16:00] VITALS: BP 133/67
--- NOTE | 2020-04-20 18:47 | NUR ---
RN NOTES PATIENT IN BED RESTING COMFORTABLY IN MODERATE HIGH BACK REST. A/O X1, EAST TIMORESE SPEAKING. PATIENT IS ON 2L OF O2 VIA N/C TOLERATING WELL. NO SIGNS OF DISTRESS NOTED THROUGHOUT THE SHIFT. PATIENT HAS MIDLINE ON LEFT UPPER ARM INTACT FLUSHING WELL. PATIENT HAS SOFT WRIST RESTRAINTS BILATERAL, WITH GOOD CIRCULATION. S/P HD WITH 1L OF OUTPUT. SAFETY MEASURES ARE IN PLACE, BED IS LOCKED AND IN THE LOW POSITION. CALL LIGHT IS WITHIN REACH WITHIN. WILL ENDORSE TO BOX PRINTING MACHINE OPERATOR NURSE FOR MAGO.
--- NOTE | 2020-04-20 19:45 | NUR ---
MS RN OPENING NOTES RECEIVED PATIENT FROM MORNING SHIFT, ALERT AND ORIENTED X 1 CONFUSED JORDANIAN SPEAKING. BREATHING REGULAR AND UNLABORED ON OXYGEN AT 3L/MIN VIA NASAL CANNULA. RIGHT CHEST PERMACATH AND LEFT UPPER ARM MIDLINE INTACT WITH NO BLEEDING OR S/S OF INFILTRATION NOTED. BILATERAL SOFT WRIST RESTRAINTS ON, SKIN ASSESSMENT DONE. NO S/S OF PAIN/DISCOMFORT SEEN AT THIS TIME. BED LOW AND LOCKED ON SEMI FOWLERS POSITION. CALL LIGHT IN REACH. WILL CONTINUE TO MONITOR.
[2020-04-20 20:00] VITALS: BP 146/84
[2020-04-20] MEDS: ATORVASTATIN 40 MG TABLET PO SCH (21:18)
[2020-04-20] MEDS: QUETIAPINE FUMARATE 25 MG TABLET PO SCH (21:18)
[2020-04-20] MEDS: *INSULIN REGULAR(HUMULIN R)HUM 100 UNIT/ML VIAL SQ PRN (21:46)
--- NOTE | 2020-04-20 22:00 | NUR ---
MS RN NOTES BS 120mg/dl, NO INSULIN COVERAGE NEEDED. ASSISTED ON EATING SNACKS ON BEDSIDE. WILL CONTINUE TO MONITOR.
[2020-04-21] MEDS: LORAZEPAM INJ 2 MG/ML VIAL IV PRN ×2 (00:14→18:45)
--- NOTE | 2020-04-21 00:15 | NUR ---
MS RN NOTES NOTED WITH EPISODES OF SHOUTING AND TRYING TO REMOVE RESTRAINTS, ATIVAN 0.5MG GIVEN VIA IV PUSH. NON-PHARMACOLOGICAL INTERVENTIONS PROVIDED. WILL CONTINUE TO MONITOR
--- NOTE | 2020-04-21 06:35 | NUR ---
MS RN CLOSING NOTES PATIENT IN BED, ALERT AND ORIENTED X 1 CONFUSED. AFEBRILE WITH NO S/S OF DISTRESS OBSERVED. RIGHT CHEST PERMACATH AND LEFT UPPER ARM MIDLINE INTACT WITH NO BLEEDING OR S/S OF INFILTRATION NOTED. MAINTAINED ON BILATERAL SOFT WRIST RESTRAINTS. NO S/S OF PAIN/DISCOMFORT NOTED AT THIS TIME. BED LOW AND LOCKED ON SEMI FOWLERS POSITION. CALL LIGHT IN REACH. WILL ENDORSE TO MORNING SHIFT FOR MAGO.
[2020-04-21] MEDS: BLOOD SUGAR DIAGNOSTIC 1 EACH STRIP VI SCH ×4 (07:22→21:41)
[2020-04-21] MEDS: INSULIN REGULAR, HUMAN 100 UNIT/ML 3 ML VIAL SQ PRN ×2 (07:24→11:47)
--- NOTE | 2020-04-21 07:30 | NUR ---
RN OPENING NOTES RECEIVED PATIENT IN BED, ASLEEP BUT AROUSABLE. RESPONSIVE TO TACTILE AND PAINFUL. PT IS ALERT AND ORIENTED X 1 CONFUSED. NO CARDIAC OR RESPIRATORY DISTRESS NOTED. NO SOB NOTED. SATURATING WELL ON 3L OF O2 VIA NC. BREATHING EVEN AND UNLABORED. PT IS AFEBRILE WITH NO S/S OF DISTRESS OBSERVED. RIGHT CHEST PERMACATH NOTED, PER REPORT PT WAS LAST DIALYZED YESTERDAY AND 1L WAS TAKEN OUT. IV ACCESS NOTED ON LEFT UPPER ARM MIDLINE INTACT WITH NO BLEEDING OR S/S OF INFILTRATION NOTED. MAINTAINED ON BILATERAL SOFT WRIST RESTRAINTS. NO S/S OF PAIN/DISCOMFORT NOTED AT THIS TIME. NO S/S OF OF SKIN BREAKDOWN UNDERNEATH RESTRAINTS. SAFETY PRECAUTIONS IN PLACE. BED LOW AND LOCKED ON SEMI FOWLERS POSITION. CALL LIGHT IN REACH. BED ALARM ON. WILL CONT TO MONITOR.
[2020-04-21 08:00] VITALS: BP 114/73
[2020-04-21] MEDS: ASPIRIN EC 81 MG TABLET.DR PO SCH (08:44)
[2020-04-21] MEDS: APIXABAN 5 MG TABLET PO SCH ×2 (08:45→16:18)
[2020-04-21] MEDS: DIVALPROEX SODIUM 125 MG CAP.SPRINK PO SCH ×3 (08:45→16:19)
[2020-04-21] MEDS: MULTIVITAMINS,THERAGRAN 1 UDTAB TABLET PO SCH (08:46)
[2020-04-21] MEDS: MIDODRINE HCL (5MG) 5 MG TABLET PO SCH ×3 (08:46→16:19)
[2020-04-21] MEDS: CLOTRIMAZOLE 1% 15 GM TUBE TP SCH ×2 (08:46→16:20)
[2020-04-21] MEDS: CALCIUM CARBONATE 500 MG TAB.CHEW PO SCH ×3 (08:46→16:18)
--- NOTE | 2020-04-21 11:30 | NUR ---
BLOOD SUGAR CHECK BS NOTED AT 132. HELD INSULIN PT HAS POOR PO INTAKE AT THIS TIME.
[2020-04-21] MEDS: QUETIAPINE FUMARATE 25 MG TABLET PO PRN (14:00)
[2020-04-21 16:00] VITALS: BP 114/73
--- NOTE | 2020-04-21 18:45 | NUR ---
ATIVAN PT RESTLESS AND AGITATED. PRN ATIVAN ADMINISTERED. PROVIDED WITH QUIET ENVIRONMENT. KEPT COMFORTABLE.
--- NOTE | 2020-04-21 19:25 | NUR ---
RN CLOSING NOTES PATIENT IN BED, ASLEEP BUT AROUSABLE. RESPONSIVE TO TACTILE AND PAINFUL. PT IS ALERT AND ORIENTED X 1 CONFUSED. NO CARDIAC OR RESPIRATORY DISTRESS NOTED. NO SOB NOTED. SATURATING WELL ON 3L OF O2 VIA NC. BREATHING EVEN AND UNLABORED. PT IS AFEBRILE WITH NO S/S OF DISTRESS OBSERVED. RIGHT CHEST PERMACATH NOTED. IV ACCESS NOTED ON LEFT UPPER ARM MIDLINE INTACT WITH NO BLEEDING OR S/S OF INFILTRATION NOTED. MAINTAINED ON BILATERAL SOFT WRIST RESTRAINTS. NO S/S OF PAIN/DISCOMFORT NOTED AT THIS TIME. NO S/S OF OF SKIN BREAKDOWN UNDERNEATH RESTRAINTS. ALL NEED ,SAFETY PRECAUTIONS IN PLACE. BED LOW AND LOCKED ON SEMI FOWLERS POSITION. CALL LIGHT IN REACH. BED ALARM ON. WILL CONT TO MONITOR.
--- NOTE | 2020-04-21 19:30 | NUR ---
MS RN OPENING NOTES RECEIVED PATIENT FROM MORNING SHIFT, ALERT AND ORIENTED X 1 CONFUSED SENEGALESE SPEAKING. BREATHING REGULAR AND UNLABORED ON OXYGEN AT 3L/MIN VIA NASAL CANNULA. RIGHT CHEST PERMACATH AND LEFT UPPER ARM MIDLINE INTACT WITH NO BLEEDING OR S/S OF INFILTRATION NOTED. BILATERAL SOFT WRIST RESTRAINTS ON, SKIN ASSESSMENT DONE. NO S/S OF PAIN/DISCOMFORT SEEN AT THIS TIME. BED LOW AND LOCKED ON SEMI FOWLERS POSITION. CALL LIGHT IN REACH. WILL CONTINUE TO MONITOR.
[2020-04-21 20:00] VITALS: BP 117/84
[2020-04-21] MEDS: QUETIAPINE FUMARATE 25 MG TABLET PO SCH (21:41)
[2020-04-21] MEDS: ATORVASTATIN 40 MG TABLET PO SCH (21:41)
[2020-04-21] MEDS: *INSULIN REGULAR(HUMULIN R)HUM 100 UNIT/ML VIAL SQ PRN (21:42)
--- NOTE | 2020-04-21 22:10 | NUR ---
MS RN NOTES BS 132mg/dl, NO INSULIN COVERAGE GIVEN D/T POOR ORAL INTAKE. ASSISTED ON EATING SNACKS ON BEDSIDE BUT PATIENT SPITS IT OUT. WILL CONTINUE TO MONITOR.
[2020-04-22 06:26] LABS: BASOPHILS # (AUTO) 0.1 /CMM (0.0-0.2); BASOPHILS % (AUTO) 1.1 % (0.0-2.0); EOSINOPHILS % (AUTO) 1.2 % (0.0-6.0); HEMATOCRIT 37 % (39-51); HEMOGLOBIN 10.8 g/dL (13.5-17.5); LYMPHOCYTES # (AUTO) 0.7 /CMM (0.8-4.8); LYMPHOCYTES % (AUTO) 8.4 % (20.0-44.0); MEAN CORPUSCULAR HGB CONC 30 g/dl (31.0-36.0); MEAN CORPUSCULAR VOLUME 96 fL (80-96); MONOCYTES # (AUTO) 0.8 /CMM (0.1-1.30); NEUTROPHILS # (AUTO) 6.7 /CMM (1.8-8.9); NEUTROPHILS % (AUTO) 80.3 % (43.0-81.0); PLATELET COUNT (AUTO) 175 /CMM (150-450); WHITE BLOOD COUNT (AUTO) 8.4 K/uL (4.3-11.0)
[2020-04-22 06:53] LABS: VALPROIC ACID 11 ug/mL (50-100)
[2020-04-22] MEDS: BLOOD SUGAR DIAGNOSTIC 1 EACH STRIP VI SCH ×4 (07:16→21:20)
[2020-04-22] MEDS: INSULIN REGULAR, HUMAN 100 UNIT/ML 3 ML VIAL SQ PRN ×2 (07:16→11:50)
[2020-04-22 07:20] LABS: ALBUMIN 3.1 g/dL (3.4-5.0); ALKALINE PHOSPHATASE 127 U/L (46-116); ASPARTATE AMINOTRANSFERASE 15 U/L (15-37); CALCIUM, SERUM 7.8 mg/dL (8.5-10.1); CARBON DIOXIDE 22 mmol/L (21-32); CHLORIDE 101 mmol/L (98-107); GLUCOSE 133 mg/dL (74-106); MAGNESIUM 2.2 mg/dL (1.8-2.4); POTASSIUM 5.2 mmol/L (3.5-5.1); SODIUM SERUM 141 mmol/L (136-145); TOTAL PROTEIN, SERUM 6.7 g/dL (6.4-8.2)
--- NOTE | 2020-04-22 07:33 | NUR ---
MS RN OPENING NOTE PATIENT IN BED RESTING COMFORTABLY. PATIENT IN NO ACUTE DISTRESS. NO SOB NOTED. PATIENT BREATHING IS EVEN AND UNLABORED. PATIENT WITH BILATERAL SOFT WRIST RESTRAINTS. NOTED WITH GOOD CIRCULATION. PATIENT BED ALARM IS ON. PATIENT SAFETY PRECAUTIONS IN PLACE. PATIENT BED IS LOCKED AND IN LOWEST POSITION. CALL LIGHT WITHIN REACH. WILL CONTINUE TO MONITOR.
[2020-04-22 07:47] LABS: ALANINE AMINOTRANSFERASE 8 U/L (12-78)
[2020-04-22 08:00] VITALS: BP 112/68
[2020-04-22 08:12] LABS: BILIRUBIN,TOTAL 0.6 mg/dL (0.2-1.0)
[2020-04-22 08:20] LABS: CREATININE 8.4 mg/dL (0.6-1.3); UREA NITROGEN, BLOOD 83 mg/dL (7-18)
--- NOTE | 2020-04-22 08:30 | NUR ---
MS RN NOTE DR. GARRISON MADE AWARE OF BUN 83 AND CREATININE 8.4. NO NEW ORDERS AT THIS TIME.
[2020-04-22] MEDS: ASPIRIN EC 81 MG TABLET.DR PO SCH (08:31)
[2020-04-22] MEDS: CLOTRIMAZOLE 1% 15 GM TUBE TP SCH ×2 (08:31→17:13)
[2020-04-22] MEDS: CALCIUM CARBONATE 500 MG TAB.CHEW PO SCH ×3 (08:31→17:08)
[2020-04-22] MEDS: MIDODRINE HCL (5MG) 5 MG TABLET PO SCH ×3 (08:32→17:00)
[2020-04-22] MEDS: APIXABAN 5 MG TABLET PO SCH ×2 (08:33→17:06)
[2020-04-22] MEDS: MULTIVITAMINS,THERAGRAN 1 UDTAB TABLET PO SCH (08:36)
[2020-04-22] MEDS: DIVALPROEX SODIUM 125 MG CAP.SPRINK PO SCH ×3 (08:36→17:08)
--- NOTE | 2020-04-22 11:56 | NUR ---
MS RN NOTE INFORMED TO DR. POSADAS BUN AND CRE AND ASKED IF PATIENT WILL BE RECEIVING DIALYSIS. PER MD PATIENT IS TO HAVE DIALYSIS.
[2020-04-22 16:00] VITALS: BP 137/61
--- NOTE | 2020-04-22 17:07 | NUR ---
MS RN NOTE HELD MIDODRINE DUE TO ELEVATED BP AT 137/ 61, HR 80.
--- NOTE | 2020-04-22 17:14 | NUR ---
MS RN NOTE PATIENT BLOOD SUGAR IS 102. NO INSULIN COVERAGE NEEDED PER PROTOCOL.
--- NOTE | 2020-04-22 17:48 | NUR ---
MS RN NOTE SPOKE WITH JAVI OVEREDGER, SHE WILL DIALYZE PATIENT TONIGHT.
--- NOTE | 2020-04-22 18:00 | NUR ---
MS RN NOTE PATIENT WAS ABLE TO TOLERATE AND CONSUME 40% OF THE NEPRO SHAKE CAN. ENCOURAGED PO INTAKE THROUGHOUT SHIFT.
--- NOTE | 2020-04-22 18:38 | NUR ---
MS RN CLOSING NOTE PATIENT IN BED RESTING COMFORTABLY. PATIENT IN NO ACUTE DISTRESS. NO SOB NOTED. PATIENT BREATHING IS EVEN AND UNLABORED. PATIENT WITH BILATERAL SOFT WRIST RESTRAINTS. SAFETY CHECKS AND NOTED WITH GOOD CIRCULATION. PATIENT KEPT CLEAN, DRY, AND COMFORTABLE THROUGHOUT SHIFT. TURN AND REPOSITION Q2H. PATIENT CURRENTLY UNDERGOING DIALYSIS AT THIS TIME. PATIENT BED ALARM IS ON. PATIENT SAFETY PRECAUTIONS IN PLACE. PATIENT BED IS LOCKED AND IN LOWEST POSITION. CALL LIGHT WITHIN REACH. WILL ENDORSE CARE TO PM SHIFT FOR MAGO.
--- NOTE | 2020-04-22 19:30 | NUR ---
MS/RN NOTE Hemodialysis nurse pulled 0 ml during dialysis today.
[2020-04-22] MEDS: QUETIAPINE FUMARATE 25 MG TABLET PO PRN (19:49)
--- NOTE | 2020-04-22 20:38 | NUR ---
MS/RN OPENING NOTE Patient awake in bed. A/O x1. Breathing even, clear, unlabored. No signs of acute distress or SOB. Hemodialysis today, 0 ml output. Sacral redness noted. Skin is dry and warm, appropriate for ethnicity. Bilateral soft wrist restraints in place. No signs of skin breakdown. Bed in low position, wheels locked, side rails up x2, call light within reach.
[2020-04-22] MEDS: QUETIAPINE FUMARATE 25 MG TABLET PO SCH (21:15)
[2020-04-22] MEDS: ATORVASTATIN 40 MG TABLET PO SCH (21:15)
[2020-04-22] MEDS: LORAZEPAM INJ 2 MG/ML VIAL IV PRN (22:53)
[2020-04-22 23:55] VITALS: BP 123/47
--- NOTE | 2020-04-23 05:56 | NUR ---
MS/RN CLOSING NOTE Patient awake in bed. A/O x1, confused. Patient is bedbound. Face is symmetrical. Breathing even, clear, unlabored. No signs of acute distress or SOB. Sacral redness noted. Skin is dry and warm, appropriate for ethnicity. Bilateral soft wrist restraints in place. No signs of skin breakdown. Patient had 6 bowel movements, large, brown, soft. MELODY midline site patent and intact, no signs of infiltration or redness. Incontinent of urine, clear and yellow. Bed in low position, wheels locked, side rails up x2, call light within reach. Will endorse to oncoming nurse.
[2020-04-23] MEDS: BLOOD SUGAR DIAGNOSTIC 1 EACH STRIP VI SCH ×4 (06:38→22:13)
[2020-04-23 08:00] VITALS: BP 108/50
--- NOTE | 2020-04-23 08:03 | NUR ---
MS RN OPENING NOTES PATIENT IS AWAKE A/O X 1 WITH NO SIGNS OF DISTRESS AND NO SOB ON 3L OF NASAL CANNULA. L UA MIDLINE AND RIGHT CHEST PERMCATH. BILATERAL SOFT WRIST RESTRAINTS WITH GOOD CIRCULATION AND CAPILLARY REFILL LESS THAN 3 SECONDS. SAFETY MEASURES ARE APPLIED BED IS IN LOW POSITION, LOCKED, SIDE RAILS X 2 UP FOR SAFETY. CALL LIGHT WITHIN REACH. WILL CONTINUE TO MONITOR.
[2020-04-23] MEDS: MIDODRINE HCL (5MG) 5 MG TABLET PO SCH ×3 (09:00→18:00)
[2020-04-23] MEDS: CLOTRIMAZOLE 1% 15 GM TUBE TP SCH ×2 (09:00→17:00)
[2020-04-23 09:08] LABS: CALCIUM, SERUM 7.7 mg/dL (8.5-10.1); CARBON DIOXIDE 23 mmol/L (21-32); CHLORIDE 103 mmol/L (98-107); CREATININE 7.2 mg/dL (0.6-1.3); GLUCOSE 104 mg/dL (74-106); POTASSIUM 3.9 mmol/L (3.5-5.1); SODIUM SERUM 144 mmol/L (136-145); UREA NITROGEN, BLOOD 65 mg/dL (7-18)
[2020-04-23 09:18] LABS: BASOPHILS # (AUTO) 0.1 /CMM (0.0-0.2); BASOPHILS % (AUTO) 0.9 % (0.0-2.0); EOSINOPHILS % (AUTO) 2.7 % (0.0-6.0); HEMATOCRIT 36 % (39-51); HEMOGLOBIN 10.7 g/dL (13.5-17.5); LYMPHOCYTES # (AUTO) 0.7 /CMM (0.8-4.8); LYMPHOCYTES % (AUTO) 8.9 % (20.0-44.0); MEAN CORPUSCULAR HGB CONC 29 g/dl (31.0-36.0); MEAN CORPUSCULAR VOLUME 97 fL (80-96); MONOCYTES # (AUTO) 0.7 /CMM (0.1-1.30); NEUTROPHILS # (AUTO) 5.9 /CMM (1.8-8.9); NEUTROPHILS % (AUTO) 78.5 % (43.0-81.0); PLATELET COUNT (AUTO) 162 /CMM (150-450); RED BLOOD CELL COUNT(AUTO) 3.74 MIL/uL (4.5-6.0); WHITE BLOOD COUNT (AUTO) 7.5 K/uL (4.3-11.0)
[2020-04-23] MEDS: CALCIUM CARBONATE 500 MG TAB.CHEW PO SCH ×3 (10:04→18:01)
[2020-04-23] MEDS: ASPIRIN EC 81 MG TABLET.DR PO SCH (10:04)
[2020-04-23] MEDS: DIVALPROEX SODIUM 125 MG CAP.SPRINK PO SCH ×3 (10:05→18:00)
[2020-04-23] MEDS: MULTIVITAMINS,THERAGRAN 1 UDTAB TABLET PO SCH (10:05)
[2020-04-23] MEDS: APIXABAN 5 MG TABLET PO SCH ×2 (10:08→18:06)
[2020-04-23] MEDS: LORAZEPAM INJ 2 MG/ML VIAL IV PRN (10:35)
--- NOTE | 2020-04-23 10:57 | NUR ---
0800 TEMPERATURE WAS REPORTED TO BE 100.2 F ORAL. RE-CHECKED TEMP 97.7F. WILL CONTINUE TO MONITOR.
--- NOTE | 2020-04-23 15:45 | NUR ---
GOT REPORT FROM THE FOLDER AND NOTCHERAmada PATTERSON THAT PATIENT HAD THE L UA MIDLINE OUT. CHECKED FOR ANY BLEEDING NO BLEEDING AND COVERED IT. INFORMED DR. GARRISON NO FURTHER ORDERS. WILL INITIATE AN IV.
[2020-04-23 16:00] VITALS: BP 109/57
--- NOTE | 2020-04-23 19:35 | NUR ---
MS RN CLOSING NOTES PATIENT IS AWAKE A/O X 1 WITH NO SIGNS OF DISTRESS AND NO SOB ON 3L OF NASAL RIGHT CHEST PERMCATH. BILATERAL SOFT WRIST RESTRAINTS WITH GOOD CIRCULATION AND CAPILLARY REFILL LESS THAN 3 SECONDS. PATIENT KEPT CLEAN AND DRY. ALL NEEDS, CARE, TREATMENT AND MEDICATIONS ADMINISTERED ANTICIPATED PER ORDER. SAFETY MEASURES ARE APPLIED BED IS IN LOW POSITION, LOCKED, SIDE RAILS X 2 UP FOR SAFETY. CALL LIGHT WITHIN REACH. WILL ENDORSE TO THE NEXT BROADCAST CHIEF ENGINEER.
--- NOTE | 2020-04-23 19:45 | NUR ---
PER ID TO COLLECT BLOOD CX FROM PERMACATH TOMORROW AFTER DIALYSES ENDORSED TO THE SHOW HOST OR HOSTESS NURSE.
[2020-04-23 20:00] VITALS: BP 99/57
[2020-04-23] MEDS: QUETIAPINE FUMARATE 25 MG TABLET PO SCH (22:04)
[2020-04-23] MEDS: ATORVASTATIN 40 MG TABLET PO SCH (22:04)
[2020-04-23 22:59] VITALS: BP 99/57
--- NOTE | 2020-04-23 23:03 | NUR ---
MS/RN OPENING NOTE Patient awake in bed. A/O x1, confused. Face is symmetrical. Mucous membrane pink and moist. Breathing even, clear, unlabored. No signs of acute distress or SOB. Abdomen large, round, soft, non-tender. Patient is incontinent. 1 bowel movement; large, dark brown, soft. Right chest permacath intact, no signs of redness. Sacral redness noted. Skin is dry and warm, appropriate for ethnicity. Bilateral soft wrist restraints in place. No signs of skin breakdown. Bed in low position, wheels locked, side rails up x2, call light within reach.
--- NOTE | 2020-04-24 06:04 | NUR ---
MS/RN CLOSING NOTE Patient awake in bed. A/O x1, confused. Breathing even, clear, unlabored. No signs of acute distress or SOB. Sacral redness noted. Skin is dry and warm, appropriate for ethnicity. Bilateral soft wrist restraints in place. No signs of skin breakdown. Patient had 2 bowel movements, small, brown, soft. Incontinent of urine, clear and yellow. Left hand 22g site patent and intact, no signs of infiltration or redness. Bed in low position, wheels locked, side rails up x2, call light within reach. Will endorse to oncoming nurse.
[2020-04-24 06:46] LABS: BASOPHILS # (AUTO) 0.1 /CMM (0.0-0.2); BASOPHILS % (AUTO) 1.2 % (0.0-2.0); EOSINOPHILS % (AUTO) 3.5 % (0.0-6.0); HEMATOCRIT 35 % (39-51); HEMOGLOBIN 10.4 g/dL (13.5-17.5); LYMPHOCYTES # (AUTO) 0.6 /CMM (0.8-4.8); LYMPHOCYTES % (AUTO) 8.6 % (20.0-44.0); MEAN CORPUSCULAR HGB CONC 29 g/dl (31.0-36.0); MEAN CORPUSCULAR VOLUME 97 fL (80-96); MONOCYTES # (AUTO) 0.7 /CMM (0.1-1.30); MONOCYTES % (AUTO) 9.3 % (2.0-12.0); NEUTROPHILS # (AUTO) 5.4 /CMM (1.8-8.9); NEUTROPHILS % (AUTO) 77.4 % (43.0-81.0); PLATELET COUNT (AUTO) 186 /CMM (150-450); RED BLOOD CELL COUNT(AUTO) 3.64 MIL/uL (4.5-6.0)
[2020-04-24 07:09] LABS: CALCIUM, SERUM 8.1 mg/dL (8.5-10.1); CARBON DIOXIDE 23 mmol/L (21-32); CHLORIDE 103 mmol/L (98-107); GLUCOSE 97 mg/dL (74-106); POTASSIUM 4.4 mmol/L (3.5-5.1); SODIUM SERUM 142 mmol/L (136-145); UREA NITROGEN, BLOOD 70 mg/dL (7-18)
--- NOTE | 2020-04-24 07:20 | NUR ---
RN OPENING NOTES RECEIVED PATIENT IN BED RESTING COMFORTABLY. NOT IN ANY FORM OF DISTRESS. NO SOB NOTED. PATIENT BREATHING IS EVEN AND UNLABORED. PATIENT WITH BILATERAL SOFT WRIST RESTRAINTS. NOTED WITH GOOD CIRCULATION. PATIENT BED ALARM IS ON. PATIENT SAFETY PRECAUTIONS IN PLACE. PATIENT BED IS LOCKED AND IN LOWEST POSITION. SIDERAILS UP, CALL LIGHT WITHIN REACH. WILL CONTINUE TO MONITOR.
[2020-04-24] MEDS: BLOOD SUGAR DIAGNOSTIC 1 EACH STRIP VI SCH ×4 (07:30→22:41)
[2020-04-24 07:45] LABS: CREATININE 8.5 mg/dL (0.6-1.3)
[2020-04-24 08:00] VITALS: BP 118/56
[2020-04-24] MEDS: MIDODRINE HCL (5MG) 5 MG TABLET PO SCH ×3 (09:00→17:00)
[2020-04-24] MEDS: DIVALPROEX SODIUM 125 MG CAP.SPRINK PO SCH ×3 (09:31→17:00)
[2020-04-24] MEDS: CALCIUM CARBONATE 500 MG TAB.CHEW PO SCH ×3 (09:31→17:00)
[2020-04-24] MEDS: ASPIRIN EC 81 MG TABLET.DR PO SCH (09:31)
[2020-04-24] MEDS: MULTIVITAMINS,THERAGRAN 1 UDTAB TABLET PO SCH (09:32)
[2020-04-24] MEDS: APIXABAN 5 MG TABLET PO SCH ×2 (09:36→17:00)
[2020-04-24] MEDS: CLOTRIMAZOLE 1% 15 GM TUBE TP SCH ×2 (11:09→17:19)
--- NOTE | 2020-04-24 13:50 | NUR ---
rn notes midodrine held, bp = 129/83
[2020-04-24 16:00] VITALS: BP 96/47
--- NOTE | 2020-04-24 17:19 | NUR ---
rn notes: refused meds patient spitted out the medications saying "no no no no". explained risk and benefits, patient is confused. will monitor accordingly
[2020-04-24] MEDS ORDERED: LORAZEPAM INJ 2 MG/ML VIAL IM/IV PRN (18:00)
--- NOTE | 2020-04-24 19:30 | NUR ---
rn closing notes patient in stable condition. all needs attended and provided. still on soft wrist restraints for safety, tried to pull permacath on right chest, extremities circulation check, no complications noted. safety measures in place. bed in low/locked psotiion. siderails up. call light in reach. endorsed to ABRAHAN Garza accordingly
--- NOTE | 2020-04-24 19:31 | NUR ---
RN PM OPENING NOTE MS BEDSIDE REPORT RECIEVED FROM DAVID GAUTHIER. PT IN NO APPARENT RESP DISTRESS. PT IS AGITATED YELLING. SEIFOWLERS IN BED BILAT SOFT WRIST RESTIRANG IN PLACE FOR SAFETY. RIGHT CHEST PERMACATH IN PLACE INTACT. PT HAS NO IV ACCESS BUT PER REPORT MD AWARE. BED LOW LOCKED SRX3 CALL LIGHT PLACED WITHIN REACH WILL CONT TO MONITOR.
[2020-04-24 20:00] VITALS: BP 109/58
[2020-04-24] MEDS ORDERED: VANCOMYCIN 1.25 GM in IV D5W 250 ML IV ONE (21:00)
[2020-04-24] MEDS ORDERED: GENTAMICIN 120 MG in IV D5W 100 ML IV ONE (22:00)
--- NOTE | 2020-04-24 22:30 | NUR ---
NOTIFIIED ANDONIAN THAT PATIENT HAS NO IV ACCESS ATTEMPTED TO REINSERT LINE TO LEFT HAND BY ME X1 AND IZABEL RN FROM [facility]/ICU X1 UNSUSCCESSFUL. NEW ORDER FOR MIDLINE GIVEN. MD AWARE MEDICATION NOT BE ADMINISTERED TILL IV ACCESS GAINED.
[2020-04-24] MEDS: ATORVASTATIN 40 MG TABLET PO SCH (22:37)
[2020-04-24] MEDS: QUETIAPINE FUMARATE 25 MG TABLET PO SCH (22:37)
--- NOTE | 2020-04-25 | NUR ---
IV INITIATED BY KAYLA GAUTHIER FROM ICU. 22 GAUGE TO LEFT HAND STARTED WITH NO S/S OF INFILTRATION. IVPB GENTAMYCIN AND VANCOMYCIN TO BE INFUSED ORDERED.
--- NOTE | 2020-04-25 02:13 | NUR ---
SPOKE WITH PHARMACIST; NO NEED TO RETIME MORNING GENT AND VANC TROUGHS. spoke with pharmacist aleah sullivan night coverage. informed doses of ivpb given late. review of orders and timed troughs in the am. states that they are random levels and do not need to be rescheduled.
[2020-04-25] MEDS: BLOOD SUGAR DIAGNOSTIC 1 EACH STRIP VI SCH ×3 (06:41→17:00)
[2020-04-25 07:50] LABS: CALCIUM, SERUM 7.6 mg/dL (8.5-10.1); CARBON DIOXIDE 25 mmol/L (21-32); CHLORIDE 102 mmol/L (98-107); CREATININE 6.8 mg/dL (0.6-1.3); GLUCOSE 110 mg/dL (74-106); POTASSIUM 3.5 mmol/L (3.5-5.1); SODIUM SERUM 140 mmol/L (136-145); UREA NITROGEN, BLOOD 48 mg/dL (7-18)
--- NOTE | 2020-04-25 07:53 | NUR ---
RN NOTES RECEIVED PATIENT IN BED RESTING COMFORTABLY IN MODERATE HIGH BACK REST. A/O X1. CONFUSED, NOTED WITH BILATERAL SOFT WRIST RESTRAINT. IV ACCESS ON LEFT HAND #22, PATENT AND INTACT. NOTED WITH RIGHT CHEST PERMACATH IN PLACE INTACT. SAFETY MEASURES IN PLACE, BED LOW LOCKED SRX3. CALL LIGHT WITHIN REACH. WILL CONTINUE TO MONITOR.
[2020-04-25 08:26] VITALS: BP 108/59
[2020-04-25] MEDS ORDERED: GENTAMICIN 80 MG in IV D5W 50 ML IV PRN (09:00)
[2020-04-25] MEDS ORDERED: VANCOMYCIN 500 MG in IV D5W 100 ML IV PRN (09:00)
[2020-04-25] MEDS: ASPIRIN EC 81 MG TABLET.DR PO SCH (09:25)
[2020-04-25] MEDS: DIVALPROEX SODIUM 125 MG CAP.SPRINK PO SCH ×3 (09:25→17:06)
[2020-04-25] MEDS: CALCIUM CARBONATE 500 MG TAB.CHEW PO SCH ×3 (09:25→17:05)
[2020-04-25] MEDS: MULTIVITAMINS,THERAGRAN 1 UDTAB TABLET PO SCH (09:25)
[2020-04-25] MEDS: MIDODRINE HCL (5MG) 5 MG TABLET PO SCH ×3 (09:25→17:11)
[2020-04-25] MEDS: APIXABAN 5 MG TABLET PO SCH ×2 (09:26→17:12)
[2020-04-25] MEDS: CLOTRIMAZOLE 1% 15 GM TUBE TP SCH ×2 (09:27→17:00)
[2020-04-25] MEDS ORDERED: LACTULOSE 10 G/15 ML UDC (PYXIS) PO PRN (09:30)
[2020-04-25 15:45] VITALS: BP 119/58
[2020-04-25] MEDS ORDERED: DIVA125C2 PO (17:20)
[2020-04-25] MEDS ORDERED: CALC500T63 PO (17:20)
[2020-04-25] MEDS ORDERED: APIX5TAB PO (17:20)
--- NOTE | 2020-04-25 17:43 | NUR ---
spoke with mauriec Aguirre [phone], family does not want patient to go to SNF.Family and patient prefer to return home. Spoke with Karmen at [facility] [phone] - will start service tomorrow or Tuesday. Called HD Ctr- but no one is answering.Faxed clinicals to [facility] [phone], will resume HD every MWF @ 8:45AM.Family will provide ride. Advised family to f/u with pcp and return to hosp if symptoms worsen or failed to improve. Addendum: 04/25/20 at 1744 by MARTHA CHATMAN RN Amended: Links added.
--- NOTE | 2020-04-25 19:16 | NUR ---
RN NOTES PATIENT IN BED RESTING COMFORTABLY IN MODERATE HIGH BACK REST. A/O X1. CONFUSED, COMBATIVE. NOTED WITH BILATERAL SOFT WRIST RESTRAINT. NOTED WITH RIGHT CHEST PERMACATH IN PLACE INTACT. SAFETY MEASURES IN PLACE, BED LOW LOCKED SRX3. CALL LIGHT WITHIN REACH. WILL ENDORSE TO REAL ESTATE ASSOCIATE ATTORNEY NURSE FOR DISCHARGE.
--- NOTE | 2020-04-25 19:20 | NUR ---
RN marivel opening notes Received Pt from morning nurse. Pt is awake and laying in bed comfortably. Pt is alert and orientedX1 and confused. Pt speaks Indian and able to make needs known. Respiration is normal. No SOB. No S/S of distress noted. Pt is going home today. Per AM nurse Pt is going home and Pt's family will come to pickle processor patient at 1900. Pt doesn't have IV access. Am nurse removed IV sites. R upper chest permacath is clean, and intact. Bilateral soft wrist restraints are intact, skin is warm to touch and circulation is check. Per am nurse DC paperwork is signed, Pt's belongings is signed already. Safety precautions is maintained. Bed at low position, brakes locked, HOB elevated, side rails upX3 and call light is within reach. Will continue to monitor.
--- NOTE | 2020-04-25 19:52 | NUR ---
RN medsurhuma notes Called Pt's son Manuel Lundberg regarding grape picker time. Pt is scheduled to go home at 1900. Pt's son stated " I will call my brother and will call primary nurse." Will continue to monitor.
[2020-04-25 20:00] VITALS: BP 109/54
--- NOTE | 2020-04-25 20:00 | NUR ---
family is requesting ambulance transportation to go home due to patient has episode of agitation. Spoke with Wesley at the [facility] [phone] trip# [phone] eta 9:30pm with [facility] Addendum: 04/25/20 at 2116 by MARTHA CHATMAN RN Amended: Links added.
--- NOTE | 2020-04-25 20:48 | NUR ---
RN marivel notes Called and spoke with Tio Lundberg regarding pick pulling machine tender time. Pt stated "My dad needs special transportation and I'll call my brother and call you back." Informed and notified Charge nurse. Called and verified with case management Rafi. Ambulance will come to pick pulling machine tender Pt. Will continue to monitor.
[2020-04-25 21:00] VITALS: BP 109/54
--- NOTE | 2020-04-25 21:15 | NUR ---
RN MS Discharge notes [id number] (EMT Baron and Juhi Mitchell) came to brain picker Pt. Pt is going home to his family. DC paperwork is given to EMT and belongings is given to EMT. VS is stable. Afebrile. Kept Pt clean, dry and comfortable. IV sites is removed. Pt's arm band is removed. R upperchest permacath is clean, and intact.
== END 2020-04-25 21:30 | disposition home health service (06) | DRG 280 ==
LOC: ER 08:23 → TELE 11:30 → ICU 04-16 10:23 → TELE 04-16 14:00 → MED 04-17 11:02
PROVIDERS: ADMIT Internal Medicine; ATTEND Internal Medicine
PROC: 5A1D70Z Performance of Urinary Filtration, Intermittent, Less than 6 Hours Per Day (ICD-10-PCS; 2020-04-15)
PROC: 05HA33Z Insertion of Infusion Device into Left Brachial Vein, Percutaneous Approach (ICD-10-PCS; principal; 2020-04-18)
DX: I21.4 Non-ST elevation (NSTEMI) myocardial infarction (principal); E43 Unspecified severe protein-calorie malnutrition; N18.6 End stage renal disease; G92 Toxic encephalopathy; I12.0 Hypertensive chronic kidney disease with stage 5 chronic kidney disease or end stage renal disease; I82.621 Acute embolism and thrombosis of deep veins of right upper extremity; I82.611 Acute embolism and thrombosis of superficial veins of right upper extremity; L03.113 Cellulitis of right upper limb; I67.2 Cerebral atherosclerosis; G90.8 Other disorders of autonomic nervous system; Z99.2 Dependence on renal dialysis; E11.22 Type 2 diabetes mellitus with diabetic chronic kidney disease; D50.9 Iron deficiency anemia, unspecified; Z88.0 Allergy status to penicillin; Z79.82 Long term (current) use of aspirin; Z79.899 Other long term (current) drug therapy; E78.5 Hyperlipidemia, unspecified; E83.51 Hypocalcemia; E83.39 Other disorders of phosphorus metabolism; F03.90 Unspecified dementia, unspecified severity, without behavioral disturbance, psychotic disturbance, mood disturbance, and anxiety; F29 Unspecified psychosis not due to a substance or known physiological condition; M85.9 Disorder of bone density and structure, unspecified; H70.90 Unspecified mastoiditis, unspecified ear; Z79.01 Long term (current) use of anticoagulants
CPT/HCPCS: 36415; 70450-TC; 71045-TC; 80048-TC; 80053-TC; 80076-TC; 80164-TC; 80170-TC; 80202-TC; 82140-TC; 82533; 82962-TC; 83605-TC; 83735-TC; 84100-TC; 84484-TC; 85025-TC; 85730-TC; 86706; 87040-TC; 87081-TC; 87340; 90935-TC; 93307-TC; 93971-TC; A4216; C9803-CS; G0378; J1580; J1815; J2060; J3370; J7030; J7040; J7050; J7060; P9047

== ENCOUNTER 2020-05-02 09:34 | Inpatient (IN) | payer MEDICARE, OTHER ==
[~2020-05-02] VITALS: Ht 167.6 cm; Wt 120.2 kg
[~2020-05-02 09:34] MED LIST: APIX5TAB PO; ASPI-605 PO; ATOR40TA PO; CALC500T63 PO; DIVA125C2 PO; DOXE25CA3 PO; FURO-144 PO; LINA5TAB PO; MIDO10TA PO; MULT1TAB69 PO; QUET50TA PO
--- NOTE | 2020-05-02 09:42 | NUR ---
MARISSARA 89 FROM DIALYSIS FOR HYPOTENSION W SYSTOLIC BP IN THE 60'S, BP 160 BLEACH ANALYST , PATIENT NOT DIALYZED TODAY. DIALYSIS EVERY M-W-F. TO ER BED 8, HOOKED TO CONTACT CENTER SPECIALIST AND POX, CHANGED TO HOSP GOWN, WARM BLANKET PROVIDED, PLACED ON O2 VIA NC AT 2LPM. DR RIVERA AT BEDSIDE
[2020-05-02] MEDS ORDERED: IV NS 0.9% 500 ML BAG IV ONE (10:00)
[2020-05-02 10:05] LABS: BASOPHILS % (AUTO) 0.6 % (0.0-2.0); EOSINOPHILS % (AUTO) 1.1 % (0.0-6.0); HEMATOCRIT 31 % (39-51); HEMOGLOBIN 9.1 g/dL (13.5-17.5); LYMPHOCYTES # (AUTO) 0.4 /CMM (0.8-4.8); LYMPHOCYTES % (AUTO) 5.8 % (20.0-44.0); MEAN CORPUSCULAR HGB CONC 30 g/dl (31.0-36.0); MEAN CORPUSCULAR VOLUME 97 fL (80-96); MONOCYTES # (AUTO) 0.7 /CMM (0.1-1.30); MONOCYTES % (AUTO) 9.8 % (2.0-12.0); NEUTROPHILS # (AUTO) 5.9 /CMM (1.8-8.9); NEUTROPHILS % (AUTO) 82.7 % (43.0-81.0); PLATELET COUNT (AUTO) 171 /CMM (150-450); RED BLOOD CELL COUNT(AUTO) 3.17 MIL/uL (4.5-6.0); WHITE BLOOD COUNT (AUTO) 7.1 K/uL (4.3-11.0)
[2020-05-02 10:11] LABS: CALCIUM, SERUM 9.1 mg/dL (8.5-10.1); CARBON DIOXIDE 30 mmol/L (21-32); CHLORIDE 102 mmol/L (98-107); GLUCOSE 181 mg/dL (74-106); SODIUM SERUM 143 mmol/L (136-145); UREA NITROGEN, BLOOD 51 mg/dL (7-18)
--- NOTE | 2020-05-02 10:11 | NUR ---
PICKED UP BY RT [facility] FOR [facility]AN
[2020-05-02 10:12] LABS: CREATININE 7.8 mg/dL (0.6-1.3)
[2020-05-02] MEDS ORDERED: DIVA125C5 PO (10:16)
[2020-05-02] MEDS ORDERED: CALC500T13 PO (10:16)
[2020-05-02] MEDS ORDERED: APIX2.5T PO (10:16)
[2020-05-02] MEDS ORDERED: OLAN2.5T3 PO (10:16)
[2020-05-02 10:24] LABS: ALANINE AMINOTRANSFERASE 8 U/L (12-78); ALBUMIN 4.2 g/dL (3.4-5.0); ALKALINE PHOSPHATASE 85 U/L (46-116); ASPARTATE AMINOTRANSFERASE 12 U/L (15-37); BILIRUBIN,DIRECT 0.2 mg/dL (0.0-0.2); BILIRUBIN,TOTAL 0.6 mg/dL (0.2-1.0); TOTAL PROTEIN, SERUM 7.2 g/dL (6.4-8.2)
--- NOTE | 2020-05-02 10:40 | NUR ---
CALLED [facility] [phone] LIQUEFIER IS Shannon XIONG [phone]. HE WILL CALL US BACK.
--- NOTE | 2020-05-02 10:40 | NUR ---
MOVE SHEET SUBMITTED AND CALLED FOR TELE BED.
--- NOTE | 2020-05-02 10:49 | NUR ---
RAPID COVID SWAB DONE AND SENT TO LAB
--- NOTE | 2020-05-02 10:52 | NUR ---
NEFTALI XIONG CALLED BACK, PLEASE GIVE TO EPIC
[2020-05-02] MEDS ORDERED: ASPIRIN 325 MG TABLET PO ONE (11:00)
[2020-05-02] MEDS ORDERED: ASPIRIN 325 MG TABLET ONE (11:04)
--- NOTE | 2020-05-02 11:09 | NUR ---
BED ASSIGNMENT: 316-1.
--- NOTE | 2020-05-02 11:32 | NUR ---
Negative for Covid.
--- NOTE | 2020-05-02 11:50 | NUR ---
Transferred to Tele unit via acls protocol, with RN and geek squad [employer]
--- NOTE | 2020-05-02 12:10 | NUR ---
ECHOCARDIOGRAPHY TECH NOTES RECEIVED PT FROM ER NURSE VIA SRI. AOX1. WELSH SPEKING ONLY WITHA DMITTING DX OF ACUTE ENCEPHALOPATHY. NO CARDIAC OR RESPIRATORY DISTRESS NOTED. NO SOB NOTED. SATURATING WELL ON 2L OF O2 VIA NC. IV ACCESS NOTED ON R AC G20. INTACT AND PATENT AND FLUSHING WELL. R CHEST PERMACATH NOTED. DRESSING CLEAN DRY AND INTACT. SAFETY PRECAUTIONS IN PLACE. BED LOCKED AND IN LOW POSITION. SIDE RAILS UP X2. BED ALARM SQUAD BOSS LIGHT WITHIN REACH. WILL CONT TO MONITOR.
[2020-05-02] MEDS ORDERED: ACETAMINOPHEN 325 MG TABLET PO PRN (12:30)
[2020-05-02] MEDS ORDERED: Z GUARD REMEDY 2 OZ OINT TP PRN (12:30)
[2020-05-02] MEDS ORDERED: MAG HYDROX/AL HYDROX/SIMETH 30 ML UDC PO PRN (12:30)
[2020-05-02] MEDS ORDERED: ONDANSETRON HCL/PF 4 MG/2 ML VIAL IVP PRN (12:30)
[2020-05-02] MEDS ORDERED: HYDROCODONE/APAP 5/325MG TABLET PO PRN (12:30)
[2020-05-02] MEDS ORDERED: MAGNESIUM HYDROXIDE 30 ML UDC PO PRN (12:30)
[2020-05-02] MEDS ORDERED: ZOLPIDEM TARTRATE 5 MG TABLET PO PRN (12:30)
--- NOTE | 2020-05-02 15:00 | NUR ---
EMESIS X2 PT HAD BROWN EMESIS X2. NO FOOD PARTICLES NOTED. KIMBERLY SALARY AND WAGE ADMINISTRATOR NOTIFIED. PER SALARY AND WAGE ADMINISTRATOR REFER PT FOR GI CONSULT, KEEP NPO AND SHE WILL START PT ON PROTONIX. DR. MICHEL WAS MADE AWARE OF CONSULT. ZOFRAN PRN AND PROTONIC ADMINISTERED PER SALARY AND WAGE ADMINISTRATOR ORDERS.
[2020-05-02] MEDS: PANTOPRAZOLE 40 MG VIAL IV SCH (15:02)
--- NOTE | 2020-05-02 15:30 | NUR ---
MARILU ORDERS PER DR. MICHEL, KEEP PT NPO, MONITOR H AND H Q4HRS UNTIL STABLE. CURRENT H AND H IS AT 9.1. AND TARNSFUSE WITH PRBC IF HGB IS <7.
[2020-05-02 16:00] VITALS: BP 102/56
[2020-05-02] MEDS ORDERED: IV D5/ 0.9% NACL 1,000 ML IV PRN (18:00)
--- NOTE | 2020-05-02 19:40 | NUR ---
TELERN FOUND BLOODY FROM IV SITE, FROM RIGHT AC. PRESSURE DRESSING OVER SITE. CONFUSED, NEEDS TO BE MOVE CLOSER TO STATION. CONTINUED.
--- NOTE | 2020-05-02 19:57 | NUR ---
RN CLOSING NOTES RECEIVED PT FROM ER NURSE VIA SRI. AOX1. TAIWANESE SPEKING ONLY WITHA DMITTING DX OF ACUTE ENCEPHALOPATHY. NO CARDIAC OR RESPIRATORY DISTRESS NOTED. NO SOB NOTED. SATURATING WELL ON 2L OF O2 VIA NC. IV ACCESS NOTED ON R AC G20. WITH D5NS RUNNING AT 50ML/HR. INTACT AND PATENT AND FLUSHING WELL. R CHEST PERMACATH NOTED. DRESSING CLEAN DRY AND INTACT. NO MORE EMESIS NOTED AFTER ZOFRAN AND PROTONIX ADMINISTERED. KEPT NPO NPO PER MD ORDERS. SAFETY PRECAUTIONS IN PLACE. BED LOCKED AND IN LOW POSITION. SIDE RAILS UP X2. BED ALARM PROCESSING ANALYST LIGHT WITHIN REACH. WILL CONT TO MONITOR.
[2020-05-02 21:34] LABS: HEMOGLOBIN 8.5 g/dL (13.5-17.5)
[2020-05-02 22:28] VITALS: BP 98/54
--- NOTE | 2020-05-02 23:30 | NUR ---
TELERN MOVED TO ROOM 309-1 FOR CLOSER OBSERVATION, CONFUSED, CAN BE UNCOOPERATIVE AT TIMES. INCREASING AGITATION WITH DVT PUMP ON. HELD FOR NOW. RESTARTED 22 GAUGE ON LEFT HAND WITH GOOD BLOOD RETURN BY RN. 500CC OUT FROM HD. HYPOTENSIVE FOR NOW, CLOSELY MONITORED. NIGERIEN SPEAKING STATED WANTED TO EAT. NPO OF THIS TIME PER GI. PRESENT IVF RESUMED AT 50CC/HR. H/H MONITORED.
[2020-05-03] VITALS (7 sets, daily range): BP systolic 90–153; BP diastolic 41–58
--- NOTE | 2020-05-03 01:05 | NUR ---
TELERN REFUSES STILL DVT PUMPS, BECOMING MORE ANXIOUS AD AGITATED WITH DVT PUMP. SITTER AT BEDSIDE. PRESENT IVF INFUSING WELL VIA LEFT HAND.
--- NOTE | 2020-05-03 01:30 | NUR ---
TELERN SLEEPING OF THIS TIME APPEARS COMFORTABLE. CLOSELY WATCHED.
--- NOTE | 2020-05-03 03:00 | NUR ---
TELERN AWAKENED FOR TIMED BLOOD DRAW. FREQ REORIENTED. STILL WANTING TO EAT. NPO INSTRUCTED TRANSLATED. IVF CONTINUED.
[2020-05-03 03:35] LABS: BASOPHILS # (AUTO) 0.1 /CMM (0.0-0.2); BASOPHILS % (AUTO) 0.6 % (0.0-2.0); EOSINOPHILS % (AUTO) 2.2 % (0.0-6.0); HEMATOCRIT 28 % (39-51); HEMOGLOBIN 8.1 g/dL (13.5-17.5); LYMPHOCYTES # (AUTO) 1.8 /CMM (0.8-4.8); LYMPHOCYTES % (AUTO) 13.6 % (20.0-44.0); MEAN CORPUSCULAR HGB CONC 29 g/dl (31.0-36.0); MEAN CORPUSCULAR VOLUME 98 fL (80-96); MONOCYTES # (AUTO) 2.2 /CMM (0.1-1.30); NEUTROPHILS # (AUTO) 8.6 /CMM (1.8-8.9); NEUTROPHILS % (AUTO) 66.6 % (43.0-81.0); PLATELET COUNT (AUTO) 167 /CMM (150-450); RED BLOOD CELL COUNT(AUTO) 2.83 MIL/uL (4.5-6.0); WHITE BLOOD COUNT (AUTO) 12.9 K/uL (4.3-11.0)
[2020-05-03 04:05] LABS: ALANINE AMINOTRANSFERASE 6 U/L (12-78); ALBUMIN 3.4 g/dL (3.4-5.0); ALKALINE PHOSPHATASE 82 U/L (46-116); ASPARTATE AMINOTRANSFERASE 17 U/L (15-37); BILIRUBIN,TOTAL 0.5 mg/dL (0.2-1.0); CALCIUM, SERUM 8.2 mg/dL (8.5-10.1); CARBON DIOXIDE 30 mmol/L (21-32); CHLORIDE 103 mmol/L (98-107); CREATININE 5.1 mg/dL (0.6-1.3); GLUCOSE 119 mg/dL (74-106); MAGNESIUM 1.9 mg/dL (1.8-2.4); PHOSPHORUS 1.7 mg/dL (2.5-4.9); POTASSIUM 4.2 mmol/L (3.5-5.1); SODIUM SERUM 142 mmol/L (136-145); TOTAL PROTEIN, SERUM 6.1 g/dL (6.4-8.2); UREA NITROGEN, BLOOD 35 mg/dL (7-18)
--- NOTE | 2020-05-03 04:15 | NUR ---
TELERN ENDORSED TO RN FOR CONTINUITY OF CARE.
--- NOTE | 2020-05-03 04:17 | NUR ---
TELE/RN NOTES: TOOK OVER PATIENT'S MAGO. PT STABLE. AWAKE, CONFUSED AND WANTING TO GET OUT OF BED. SITTER AT BEDSIDE. SAFETY MEASURES IN PLACE. WILL CONTINUE TO MONITOR ACCORDINGLY.
[2020-05-03 07:01] LABS: HEMOGLOBIN 8.1 g/dL (13.5-17.5)
--- NOTE | 2020-05-03 07:28 | NUR ---
TELE/RN CLOSING NOTES: PT REMAINS AOX1. AZERBAIJANI SPEAKING. NO CARDIAC OR RESPIRATORY DISTRESS NOTED. NO SOB NOTED. SATURATING WELL BUT REFUSES THE 2L OF O2 VIA NC AND PLACES IT ON HIS MOUTH. IV ACCESS NOTED ON R AC G20. D5NS RUNNING AT 50ML/HR. INTACT AND PATENT AND FLUSHING WELL. DRESSING CLEAN DRY AND INTACT. KEPT NPO THROUGHOUT THE SHIFT. SAFETY PRECAUTIONS IN PLACE. BED LOCKED AND IN LOW POSITION. SIDE RAILS UP X2. BED ALARM MEDICAL IMAGING TECH LIGHT WITHIN REACH. SITTER AT BEDSIDE. ENDORSED TO DAY SHIFT RN FOR MAGO.
--- NOTE | 2020-05-03 07:48 | NUR ---
RN OPENING NOTE Patient is trying to get out of bed, confused, agitated, kicking, trying to pull out lines, caregiver at the bedside. Patient is currently NPO status. IV line in the left hand #22g is clean and intact running D5NS @50cc/hour. Tele SR 60s. Bed is in lowest position, side rails x3 in upright position, fall, safety and aspiration precautions enforced. Bed alarm in place. Will continue with plan of care.
--- NOTE | 2020-05-03 08:54 | NUR ---
RN NOTE Ok per Dr. Taylor to start patient on renal diet.
[2020-05-03] MEDS ORDERED: LORAZEPAM INJ 2 MG/ML VIAL IV ONE (09:00)
[2020-05-03] MEDS ORDERED: QUETIAPINE FUMARATE 25 MG TABLET PO SCH (09:00)
[2020-05-03] MEDS ORDERED: APIXABAN 2.5 MG TABLET PO SCH ×2 (09:00→10:00)
--- NOTE | 2020-05-03 09:01 | NUR ---
RN NOTE Notified Liss Ortega that patient is confused, agitated, trying to get out of bed, and pulling out lines. Received T.O. order: - Ativan 1mg IV ONE TIME - Seroquel 12.5 mg PO BID Orders repeated back and will carry out.
[2020-05-03] MEDS: PANTOPRAZOLE 40 MG VIAL IV SCH ×2 (09:15→21:24)
[2020-05-03] MEDS ORDERED: APIXABAN 5 MG TABLET PO SCH (09:30)
--- NOTE | 2020-05-03 09:54 | NUR ---
RN NOTE Ok per Dr. Rojas for patient to take Eliquis confirmed via phone. Pharmacy made aware.
[2020-05-03] MEDS ORDERED: LACTULOSE 10 G/15 ML UDC (PYXIS) PO PRN (10:00)
[2020-05-03] MEDS: Magnesium 1GM/D5W 100ML PREMIX 100 ML IV SCH ×2 (10:09→11:10)
[2020-05-03] MEDS: MIDODRINE HCL (5MG) 5 MG TABLET PO SCH ×3 (10:10→16:31)
[2020-05-03] MEDS: HYDROCORTISONE SOD SUCCINATE 100 MG/2 ML VIAL IV SCH ×2 (10:10→17:19)
[2020-05-03] MEDS: DIVALPROEX SODIUM 125 MG CAP.SPRINK PO SCH ×3 (10:10→16:31)
[2020-05-03] MEDS: LINAGLIPTIN 5 MG TABLET PO SCH (10:10)
[2020-05-03] MEDS: OLANZAPINE 2.5 MG TABLET PO SCH ×2 (10:10→16:31)
[2020-05-03] MEDS: CALCIUM CARBONATE 500 MG TAB.CHEW PO SCH ×2 (11:11→16:30)
[2020-05-03 11:25] LABS: ABG BASE EXCESS 2.8 mmol/L; ABG PCO2 61.4 mmHg (35.0-45.0); ABG PH 7.307 (7.350-7.450); ABG PO2 85.1 mmHg (75.0-100.0); AaDO2 42.1 mmHg; MetHb 0.1 % (0.0-1.5); O2Hb 94.9 % (94.0-97.0); SITE, ABG Right Femoral; VENT MODE, BG NC 2 L
[2020-05-03] MEDS ORDERED: K PHOS NEUTRAL 250 MG TABLET PO ONE (13:00)
[2020-05-03] MEDS: APIXABAN 5 MG TABLET PO SCH (16:31)
--- NOTE | 2020-05-03 18:41 | NUR ---
RN CLOSING NOTE Patient is resting in bed, A/O x1, showing no signs of acute distress or SOB, saturating >95% on 2L NC. S/P HD 500 CC OUT TODAY. IV line in the left hand #22g running TKO. Tele SR 60s. Patient has no complaints of pain throughout shift. All patient needs met, all due medications given, patient kept clean and dry throughout shift. Bed is in lowest position, side rails x3 in upright position, fall, safety and aspiration precautions enforced. Bed alarm in place. Sitter at the bedside. Will endorse to aircraft engine mechanic.
--- NOTE | 2020-05-03 19:05 | NUR ---
FOREST ECONOMIST OPENING NOTES RECEIVED PATIENT IN BED SLEEPING EASILY AROUSABLE, ON 2 L VIA NC TOLERATING WELL, RESPIRATIONS EVEN AND UNLABORED WITH EQUAL RISE AND FALL OF CHEST, APPEARS COMFORTABLE AT THIS TIME, DENIES ANY PAIN OR DISCOMFORT AT THIS TIME REMAINS CALM, ON CARDIAC TELE MONITOR SR 85, IV SITE TO LEFT HAND #22G INTACT AND PATENT, NO REDNESS, NO INFILTRATION PRESENT, SITTER AT BEDSIDE SAFETY PRECAUTIONS RENDERED, LOW BED AND LOCKED, RIGHT CHEST WALL HD SITE INTACT, DRESSING IS C/D/I. ALL NEEDS ATTENDED AT THIS TI,E. REMAINS COMFORTABLE AND STABLE AT THIS TIME WILL CONTINUE TO MONITOR.
[2020-05-03] MEDS: QUETIAPINE FUMARATE 25 MG TABLET PO SCH (21:24)
[2020-05-03] MEDS: ATORVASTATIN 40 MG TABLET PO SCH (21:24)
[2020-05-04 00:30] VITALS: BP 98/51
[2020-05-04] MEDS: HYDROCORTISONE SOD SUCCINATE 100 MG/2 ML VIAL IV SCH ×3 (02:15→17:00)
[2020-05-04 04:00] VITALS: BP 115/50
[2020-05-04 06:14] LABS: BASOPHILS % (AUTO) 0.1 % (0.0-2.0); HEMATOCRIT 27 % (39-51); HEMOGLOBIN 8.1 g/dL (13.5-17.5); LYMPHOCYTES # (AUTO) 0.4 /CMM (0.8-4.8); LYMPHOCYTES % (AUTO) 3.3 % (20.0-44.0); MEAN CORPUSCULAR HGB CONC 30 g/dl (31.0-36.0); MEAN CORPUSCULAR VOLUME 97 fL (80-96); MONOCYTES # (AUTO) 0.3 /CMM (0.1-1.30); MONOCYTES % (AUTO) 2.4 % (2.0-12.0); NEUTROPHILS # (AUTO) 10.1 /CMM (1.8-8.9); NEUTROPHILS % (AUTO) 94.2 % (43.0-81.0); PLATELET COUNT (AUTO) 197 /CMM (150-450); RED BLOOD CELL COUNT(AUTO) 2.78 MIL/uL (4.5-6.0); WHITE BLOOD COUNT (AUTO) 10.7 K/uL (4.3-11.0)
--- NOTE | 2020-05-04 06:30 | NUR ---
SPRING ENCASER CLOSING NOTES PATIENT IN BED AWAKE ALERT AND ORIENTED X 1 FORGETFUL WITH EPISODES OF CONFUSION AND VERBALLY RESPONSIVE, ON 2 L VIA NC TOLERATING WELL, RESPIRATIONS EVEN AND UNLABORED WITH EQUAL RISE AND FALL OF CHEST, APPEARS COMFORTABLE AT THIS TIME, DENIES ANY PAIN OR DISCOMFORT AT THIS TIME REMAINS CALM, ON CARDIAC TELE MONITOR SR 77, IV SITE TO LEFT HAND #22G INTACT AND PATENT, NO REDNESS, NO INFILTRATION PRESENT, SITTER AT BEDSIDE SAFETY PRECAUTIONS RENDERED THROUGHOUT SHIFT, FLUIDS OFFERED SMALL SIPS TAKEN, LOW BED AND LOCKED, BED ALARM IN PLACE, UNABLE TO ATTACH SCDS, REFUSED REMOVES, RIGHT CHEST WALL HD PERMCATH SITE INTACT, DRESSING IS C/D/I. ALL NEEDS ATTENDED AT THIS TIME. REMAINS COMFORTABLE AND STABLE AT THIS TIME WILL CONTINUE TO MONITOR AND ENDORSE TO NEXT SHIFT.
--- NOTE | 2020-05-04 07:36 | NUR ---
CASSANDRA ARCHITECT OPENING NOTE PATIENT IN BED RESTING COMFORTABLY. PATIENT IN NO ACUTE DISTRESS. NO SOB NOTED. PATIENT BREATHING IS EVEN AND UNLABORED. PATIENT ON CARDIAC MONITORING READING SINUS RHYTHM WITH FIRST DEGREE HEART BLOCK, HR 78. PATIENT HOB IS ELEVATED. RIGHT CHEST WALL HD PERMACATH PATENT AND INTACT. PATIENT BED ALARM IS ON. PATIENT WITH 1:1 SITTER. PATIENT SAFETY PRECAUTIONS IN PLACE. PATIENT BED IS LOCKED AND IN LOWEST POSITION. CALL LIGHT WITHIN REACH. WILL CONTINUE TO MONITOR.
[2020-05-04 08:00] VITALS: BP 93/56
[2020-05-04] MEDS: CALCIUM CARBONATE 500 MG TAB.CHEW PO SCH ×3 (08:53→16:29)
[2020-05-04] MEDS: APIXABAN 5 MG TABLET PO SCH ×2 (08:54→16:28)
[2020-05-04] MEDS: PANTOPRAZOLE 40 MG VIAL IV SCH ×2 (08:54→21:16)
[2020-05-04] MEDS: MULTIVITAMINS,THERAGRAN 1 UDTAB TABLET PO SCH (08:55)
[2020-05-04] MEDS: DIVALPROEX SODIUM 125 MG CAP.SPRINK PO SCH ×3 (08:55→16:28)
[2020-05-04] MEDS: OLANZAPINE 2.5 MG TABLET PO SCH ×2 (08:55→16:28)
[2020-05-04] MEDS: LINAGLIPTIN 5 MG TABLET PO SCH (08:55)
[2020-05-04] MEDS: DOCUSATE SODIUM 250 MG CAPSULE PO SCH (08:55)
[2020-05-04] MEDS: MIDODRINE HCL (5MG) 5 MG TABLET PO SCH ×3 (08:55→16:30)
--- NOTE | 2020-05-04 11:24 | NUR ---
MS RN NOTE PATIENT PHOSPHOROUS LEVEL 2.3. PER PHARMACY CHAN ASKED ME TO ASK ATTENDING MD IF PHOSPHOROUS NEEDS TO BE REPLACED DUE TO PATIENT BEING ON DIALYSIS. DISCUSSED WITH KIMBERLY HYDE AND PER KIMBERLY DO NOT REPLACE PHOSPHOROUS.
[2020-05-04 11:26] LABS: IRON, SERUM 37 ug/dl (50-175); TOTAL IRON BINDING CAPACITY 95 ug/dl (250-450)
[2020-05-04 12:33] VITALS: BP 111/54
--- NOTE | 2020-05-04 15:32 | NUR ---
MS RN NOTE SPOKE WITH KIMBERLY HYDE REGARDING PATIENT ON TRADJENTA FOR HIS DIABETES. I DISCUSSED IF PATIENT NEEDED TO BE PLACED ON MILD SLIDING SCALE. PER KIMBERLY HAND ORDER FOR MILD SLIDING SCALE ACHS.
[2020-05-04] MEDS ORDERED: DEXTROSE 50%-WATER 50 ML DISP.SYRIN IV PRN (16:00)
[2020-05-04] MEDS: BLOOD SUGAR DIAGNOSTIC 1 EACH STRIP IN SCH ×2 (16:30→21:41)
--- NOTE | 2020-05-04 16:54 | NUR ---
MS RN NOTE PATIENT BLOOD SUGAR IS 128. NO INSULIN COVERAGE NEEDED PER PROTOCOL.
[2020-05-04 18:00] VITALS: BP 104/59
--- NOTE | 2020-05-04 18:33 | NUR ---
MS RN OPENING NOTE PATIENT IN BED RESTING COMFORTABLY. PATIENT IN NO ACUTE DISTRESS. NO SOB NOTED. PATIENT BREATHING IS EVEN AND UNLABORED. PATIENT HOB IS ELEVATED. RIGHT CHEST WALL HD PERMACATH PATENT AND INTACT. PATIENT BED ALARM IS ON. PATIENT WITH 1:1 SITTER. PATIENT KEPT CLEAN, DRY AND COMFORTABLE THROUGHOUT SHIFT. PATIENT SAFETY PRECAUTIONS IN PLACE. PATIENT BED IS LOCKED AND IN LOWEST POSITION. CALL LIGHT WITHIN REACH. WILL ENDORSE CARE TO PM SHIFT FOR MAGO. Addendum: 05/04/20 at 1835 by LEFTY ZUNIGA RN MS RN CLOSING NOTE PATIENT IN BED RESTING COMFORTABLY. PATIENT IN NO ACUTE DISTRESS. NO SOB NOTED. PATIENT BREATHING IS EVEN AND UNLABORED. PATIENT HOB IS ELEVATED. RIGHT CHEST WALL HD PERMACATH PATENT AND INTACT. PATIENT BED ALARM IS ON. PATIENT WITH 1:1 SITTER. PATIENT KEPT CLEAN, DRY AND COMFORTABLE THROUGHOUT SHIFT. PATIENT SAFETY PRECAUTIONS IN PLACE. PATIENT BED IS LOCKED AND IN LOWEST POSITION. CALL LIGHT WITHIN REACH. WILL ENDORSE CARE TO PM SHIFT FOR MAGO.
--- NOTE | 2020-05-04 19:05 | NUR ---
RN MS OPENING NOTES RECEIVED PATIENT IN BED AWAKE ALERT AND ORIENTED X1-2, ON 2 L VIA NC TOLERATING WELL, RESPIRATIONS EVEN AND UNLABORED WITH EQUAL RISE AND FALL OF CHEST, APPEARS COMFORTABLE AT THIS TIME, DENIES ANY PAIN OR DISCOMFORT AT THIS TIME REMAINS CALM HOWEVER NOTED WITH EPISODE OF NON COMPLIANCE AND REFUSIVE TO CARE,, IV SITE TO LEFT HAND #22G INTACT AND PATENT, NO REDNESS, NO INFILTRATION PRESENT, SITTER AT BEDSIDE SAFETY PRECAUTIONS RENDERED, LOW BED AND LOCKED, RIGHT CHEST WALL HD SITE INTACT, DRESSING IS C/D/I. ALL NEEDS ATTENDED AT THIS TI,E. REMAINS COMFORTABLE AND STABLE AT THIS TIME WILL CONTINUE TO MONITOR.
[2020-05-04 20:00] VITALS: BP 111/47
[2020-05-04] MEDS: ATORVASTATIN 40 MG TABLET PO SCH (21:16)
[2020-05-04] MEDS: QUETIAPINE FUMARATE 25 MG TABLET PO SCH (21:16)
[2020-05-04] MEDS: INSULIN REGULAR, HUMAN 100 UNIT/ML 3 ML VIAL SQ PRN (21:44)
--- NOTE | 2020-05-04 22:15 | NUR ---
RT PATIENT REFUSED TO USE BIPAP AT THIS TIME, PATIENT AWAKE ,ALERT AND STABLE ON 2L NASAL CANNULA. NO SOB NOTED AT THIS TIME, RN AWARE. WILL CONTINUE TO MONITOR. Addendum: 05/04/20 at 2219 by YANN RIVERA RT Amended: Links added.
--- NOTE | 2020-05-04 22:15 | NUR ---
RN MS NOTES PATIENT REFUSED TO USE BIPAP AT THIS TIME, PATIENT AWAKE ,ALERT AND STABLE ON 2L NASAL CANNULA. NO SOB NOTED AT THIS TIME, REMAINS COMFORTABLE. WILL CONTINUE TO MONITOR.
[2020-05-05] MEDS: HYDROCORTISONE SOD SUCCINATE 100 MG/2 ML VIAL IV SCH ×3 (02:53→17:03)
[2020-05-05] MEDS: INSULIN REGULAR, HUMAN 100 UNIT/ML 3 ML VIAL SQ PRN ×2 (06:05→11:28)
[2020-05-05] MEDS: BLOOD SUGAR DIAGNOSTIC 1 EACH STRIP IN SCH ×3 (06:06→17:01)
--- NOTE | 2020-05-05 06:51 | NUR ---
RN MS CLOSING NOTES PATIENT IN BED AWAKE ALERT AND ORIENTED X1-2, ON 2 L VIA NC ON AND OFF AT TIMES PATIENT REMOVES NC, 02 SAT REMAIN WNL. TOLERATING WELL, RESPIRATIONS EVEN AND UNLABORED WITH EQUAL RISE AND FALL OF CHEST, APPEARS COMFORTABLE AT THIS TIME, DENIES ANY PAIN OR DISCOMFORT AT THIS TIME REMAINS CALM HOWEVER NOTED WITH EPISODE OF NON COMPLIANCE AND REFUSIVE TO CARE,, IV SITE TO RIGHT FA #22G SL ,INTACT AND PATENT, NO REDNESS, NO INFILTRATION PRESENT, SITTER AT BEDSIDE SAFETY PRECAUTIONS RENDERED, LOW BED AND LOCKED, RIGHT CHEST WALL HD SITE INTACT, DRESSING IS C/D/I. SNACKS AND FLUIDS OFFERED AND PROVIDED, ALL NEEDS ATTENDED AT THIS TIME. REMAINS COMFORTABLE AND STABLE AT THIS TIME WILL CONTINUE TO MONITOR AND ENDORSE TO NEXT SHIFT, REFUSED NOCTURNAL BIPAP.
--- NOTE | 2020-05-05 07:47 | NUR ---
MS/RN OPENING NOTES RECEIVED PATIENT ON BED. ALERT AND ORIENTED X1. PATIENT DENIES PAIN AT THIS TIME. PATIENT IN NO RESPIRATORY DISTRESS NOTED. WILL CONTINUE TO MONITOR.
[2020-05-05] MEDS ORDERED: PANTOPRAZOLE 40 MG TABLET.DR PO SCH (08:21)
--- NOTE | 2020-05-05 08:39 | NUR ---
WOUND CARE CONSULT: PT PRESENTS WITH SACRAL SCARRING, PRESENT ON ADMISSION. PT IS ABLE TO ASSIST WTH TURNING AND REPOSITIONING IN BED. CURRENT [place] SCORE IS 15. WILL SEE PRN. RECOMMENDATIONS MADE FOR SKIN PROTECTION. DISCUSSED WITH NURSING STAFF. MD IN AGREEMENT WITH PLAN OF CARE.
--- NOTE | 2020-05-05 08:43 | NUR ---
MS/RN NOTES PATIENT REFUSED TO BLOOD DRAW THIS MORNING PER SIGNAL OPERATOR TECHNICAL EXPLAINED THE RISK AND BENEFITS PATIENTS STILL REFUSING.
[2020-05-05] MEDS: CALCIUM CARBONATE 500 MG TAB.CHEW PO SCH ×3 (08:46→16:36)
[2020-05-05] MEDS: MULTIVITAMINS,THERAGRAN 1 UDTAB TABLET PO SCH (08:47)
[2020-05-05] MEDS: DOCUSATE SODIUM 250 MG CAPSULE PO SCH (08:47)
[2020-05-05] MEDS: MIDODRINE HCL (5MG) 5 MG TABLET PO SCH ×3 (08:48→16:35)
[2020-05-05] MEDS: DIVALPROEX SODIUM 125 MG CAP.SPRINK PO SCH ×3 (08:48→16:36)
[2020-05-05] MEDS: LINAGLIPTIN 5 MG TABLET PO SCH (08:49)
[2020-05-05] MEDS: OLANZAPINE 2.5 MG TABLET PO SCH (08:49)
[2020-05-05] MEDS: APIXABAN 5 MG TABLET PO SCH ×2 (08:49→16:46)
[2020-05-05] MEDS ORDERED: EPOETIN ALFA (10,000 UNIT) 10,000 UNIT/ML VIAL IV ONE (15:00)
[2020-05-05 15:11] LABS: BASOPHILS # (AUTO) 0.1 /CMM (0.0-0.2); BASOPHILS % (AUTO) 0.9 % (0.0-2.0); EOSINOPHILS % (AUTO) 0.1 % (0.0-6.0); HEMATOCRIT 28 % (39-51); HEMOGLOBIN 8.5 g/dL (13.5-17.5); LYMPHOCYTES # (AUTO) 0.4 /CMM (0.8-4.8); LYMPHOCYTES % (AUTO) 4.8 % (20.0-44.0); MEAN CORPUSCULAR HGB CONC 30 g/dl (31.0-36.0); MEAN CORPUSCULAR VOLUME 96 fL (80-96); MONOCYTES # (AUTO) 0.3 /CMM (0.1-1.30); MONOCYTES % (AUTO) 3.8 % (2.0-12.0); NEUTROPHILS # (AUTO) 7.6 /CMM (1.8-8.9); NEUTROPHILS % (AUTO) 90.4 % (43.0-81.0); PLATELET COUNT (AUTO) 237 /CMM (150-450); WHITE BLOOD COUNT (AUTO) 8.3 K/uL (4.3-11.0)
[2020-05-05 15:29] LABS: CALCIUM, SERUM 7.7 mg/dL (8.5-10.1); CARBON DIOXIDE 31 mmol/L (21-32); CHLORIDE 104 mmol/L (98-107); CREATININE 3.6 mg/dL (0.6-1.3); GLUCOSE 134 mg/dL (74-106); MAGNESIUM 2.1 mg/dL (1.8-2.4); PHOSPHORUS 1.3 mg/dL (2.5-4.9); SODIUM SERUM 142 mmol/L (136-145); UREA NITROGEN, BLOOD 30 mg/dL (7-18)
--- NOTE | 2020-05-05 18:48 | NUR ---
MS/RN CLOSING NOTES PATIENT IS ALERT AND ORIENTED X1-2. PATIENT DENIES PAIN AT THIS TIME. PATIENT IN NO APPARENT RESPIRATORY DISTRESS NOTED. IV ACCESS AT THE RIGHT FOREARM #22 G PATENT AND INTACT. HEMODIALYSIS DONE 1000ML OUTPUT. SEEN AND EXAMINED BY MD WITH ORDERS MADE CARRIED OUT. ALL DUE MEDICATION ORDER. CHECKED PATIENT EVERY 2 HOURS. PATIENT HEMODIALYSIS DONE TODAY. SAFETY PRECAUTION IN PLACED. BED IN LOWEST POSITION. BED LOCKED, SIDERAILS UP X2. CALL LIGHT WITH IN REACH. WILL ENDORSED TO MANAGER RETAIL SALES FOR MAGO.
--- NOTE | 2020-05-05 19:00 | NUR ---
RN MS OPENING NOTES RECEIVED PATIENT IN BED AWAKE ALERT AND ORIENTED X1-2, ON ROOM AIR TOLERATING WELL SP02 95%, RESPIRATIONS EVEN AND UNLABORED WITH EQUAL RISE AND FALL OF CHEST, APPEARS COMFORTABLE AT THIS TIME, DENIES ANY PAIN OR DISCOMFORT AT THIS TIME REMAINS CALM , IV SITE TO LEFT HAND #22G INTACT AND PATENT, NO REDNESS, NO INFILTRATION PRESENT, SITTER AT BEDSIDE SAFETY PRECAUTIONS RENDERED, LOW BED AND LOCKED, RIGHT CHEST WALL HD SITE INTACT, DRESSING IS C/D/I. ALL NEEDS ATTENDED AT THIS TIME. REMAINS COMFORTABLE AND STABLE AT THIS TIME WILL CONTINUE TO MONITOR. PATIENT IS SCHEDULED FOR DISCHARGE TO [facility]. BELONGINGS LIST DONE BELONGINGS WITH PATIENT. SKIN ASSESSED SACRAL AND HEELS INTACT , RIGHT ARM DRY SCAB. PHOTOS IN CHART. ETA 2030
--- NOTE | 2020-05-05 19:45 | NUR ---
phil ms notes patient discharged picked up by 2 emt, patient is stable, awake alert and oriented x2 verbally responsive respirations even and unlabored with equal rise and fall of chest, denies any pain or discomfort, belongings given to emt, discharge paper work given to emt, patient safely transferred to [facility], iv site to right arm removed no bleeding. vs stable, left in stable condition. Addendum: 05/05/20 at 2207 by ILDA KESSLER RN disregard wrong time.
[2020-05-05 20:00] VITALS: BP 134/59
--- NOTE | 2020-05-05 20:12 | NUR ---
rn ms notes report given to hien villarreal poulan pres nurse, eta 2030 pt remains stable at this time.
--- NOTE | 2020-05-05 21:45 | NUR ---
rn ms dc notes patient discharged picked up by 2 emt, patient is stable, awake alert and oriented x2 verbally responsive respirations even and unlabored with equal rise and fall of chest, denies any pain or discomfort, belongings given to emt, discharge paper work given to emt, patient safely transferred to [facility], iv site to right arm removed no bleeding. vs stable, left in stable condition.
[2020-05-05] MEDS ORDERED: OLANZAPINE 2.5 MG TABLET PO SCH (22:00)
== END 2020-05-05 21:45 | DRG 73 ==
LOC: ER 09:39 → TELE 11:20 → MED 05-04 09:55
PROVIDERS: ADMIT Nurse Practitioner Acute Care; ATTEND Nurse Practitioner Acute Care
PROC: 5A1D70Z Performance of Urinary Filtration, Intermittent, Less than 6 Hours Per Day (ICD-10-PCS; principal; 2020-05-03)
DX: G90.8 Other disorders of autonomic nervous system (principal); G92 Toxic encephalopathy; N18.6 End stage renal disease; E43 Unspecified severe protein-calorie malnutrition; I21.A1 Myocardial infarction type 2; I13.11 Hypertensive heart and chronic kidney disease without heart failure, with stage 5 chronic kidney disease, or end stage renal disease; Z68.41 Body mass index [BMI] 40.0-44.9, adult; E66.2 Morbid (severe) obesity with alveolar hypoventilation; J90 Pleural effusion, not elsewhere classified; E11.22 Type 2 diabetes mellitus with diabetic chronic kidney disease; K21.9 Gastro-esophageal reflux disease without esophagitis; D50.9 Iron deficiency anemia, unspecified; D63.8 Anemia in other chronic diseases classified elsewhere; Z88.0 Allergy status to penicillin; Z79.84 Long term (current) use of oral hypoglycemic drugs; Z79.82 Long term (current) use of aspirin; Z79.899 Other long term (current) drug therapy; E78.5 Hyperlipidemia, unspecified; D53.9 Nutritional anemia, unspecified; F29 Unspecified psychosis not due to a substance or known physiological condition; E83.42 Hypomagnesemia; E87.5 Hyperkalemia; I67.2 Cerebral atherosclerosis; I70.0 Atherosclerosis of aorta; I95.89 Other hypotension; Z79.01 Long term (current) use of anticoagulants; Z99.2 Dependence on renal dialysis; Z86.718 Personal history of other venous thrombosis and embolism
CPT/HCPCS: 36415; 36600; 70450-TC; 71045-TC; 80048-TC; 80053-TC; 80076-TC; 82140-TC; 82533; 82803-TC; 82962-TC; 83540-TC; 83605-TC; 83735-TC; 84100-TC; 84484-TC; 85025-TC; 85027-TC; 85730-TC; 86706; 87040-TC; 87081-TC; 87340; 90935-TC; 92521; 97530-TC; A6403; C9113; G0378; J0885; J1720; J1815; J2060; J2405; J3475; J7030; J7040